=== PATIENT | male | born 1955 | race Caucasian/White ===

== ENCOUNTER 2024-03-24 18:43 | Inpatient (IN) | payer MEDICARE, MEDICAID ==
[~2024-03-24] VITALS: Ht 170.2 cm; Wt 98.6 kg
[~2024-03-24 18:43] MED LIST: ALBU18HF12 IH; DOXA2TAB86 PO; DULO20CA71 PO; NALT50TA33 PO; POTA-206 PO
[2024-03-24 20:47] LABS: BASOPHILS % (AUTO) 0.1 % (0.0-2.0); EOSINOPHILS % (AUTO) 0.3 % (1.0-6.0); HEMATOCRIT 27.7 % (41-53); HEMOGLOBIN 9.1 g/dL (13.5-17.5); LYMPHOCYTES % (AUTO) 8.2 % (22.0-44.0); MEAN CORPUSCULAR HEMOGLOBIN 34.5 pg (26.0-34.0); MEAN CORPUSCULAR HGB CONC 32.9 G/dL (31.0-37.0); MEAN CORPUSCULAR VOLUME 105 fL (80-100); MONOCYTES % (AUTO) 16.2 % (2.0-9.0); NEUTROPHILS # (AUTO) 18.4 K/uL (1.8-7.7); NEUTROPHILS % (AUTO) 75.2 % (40.0-70.0); PLATELET COUNT (AUTO) 271 K/uL (150-450); RED BLOOD CELL COUNT(AUTO) 2.64 MIL/uL (4.50-5.90); RED CELL DISTRIBUTION WIDTH 16.8 % (11.5-14.5); WHITE BLOOD COUNT (AUTO) 24.5 K/uL (4.5-11.0)
[2024-03-24 20:51] LABS: ANION GAP 12 mmol/L (8-16); CALCIUM, TOTAL 9.5 mg/dL (8.8-10.5); CARBON DIOXIDE 32 mmol/L (22-29); CHLORIDE 111 mmol/L (98-107); CREATININE 3.75 mg/dL (0.60-1.30); GLOMERULAR FILTR. RATE CALC 16 mL/min (>60); GLUCOSE,RANDOM 153 mg/dL (70-110); POTASSIUM 3.4 mmol/L (3.5-5.1); SODIUM SERUM 155 mmol/L (136-145)
[2024-03-24 20:59] LABS: AMMONIA 16 umol/L (11-32); UREA NITROGEN, BLOOD 126 mg/dL (7-18)
[2024-03-24 21:00] LABS: INR 1.1 (0.9-1.1); LACTIC ACID 1.6 mmol/L (0.4-2.0); PROTHROMBIN TIME 11.9 SEC (9.4-11.6); TROPONIN I-HIGH SENSITIVITY 100 ng/L (<76)
[2024-03-24 21:06] LABS: ALCOHOL, BLOOD (SERUM) < 3 mg/dL (0-10)
[2024-03-24 21:17] LABS: ALANINE AMINOTRANSFERASE 22 U/L (12-78); ALBUMIN 2.1 g/dL (3.4-5.0); ALKALINE PHOSPHATASE 97 U/L (46-116); ASPARTATE AMINOTRANSFERASE 87 U/L (15-37); CREATINE KINASE, TOTAL ONLY 244 U/L (39-308); TOTAL PROTEIN, SERUM 6.4 g/dL (6.4-8.2)
[2024-03-24 21:29] LABS: RBC MORPHOLOGY COMMENT ABNORMAL RBC MORPH
[2024-03-24] MEDS: PIPERACILLIN/TAZO 3.375 GM/D5W 50 ML IV ONE (23:09)
[2024-03-24] MEDS: SODIUM CHLORIDE 0.9% 1,050 ML IV ONE (23:09)
[2024-03-24] MEDS ORDERED: ACETAMINOPHEN 325 MG TABLET PO PRN (23:15)
[2024-03-24] MEDS: LEVOFLOXACIN 500 MG/D5% WATER 100 ML IV ONE (23:41)
[2024-03-24] MEDS: SODIUM CHLORIDE 0.45% IV ONE (23:41)
[2024-03-24] MEDS: HEPARIN SODIUM,PORCINE 5,000 UNITS/ML VIAL SQ SCH (23:41)
[2024-03-24] MEDS: SODIUM CHLORIDE 0.45% 1,000 ML IV ONE (23:41)
[2024-03-24] MEDS: *CLINICAL-LEVOFLOXACIN IVPB DOSING CLINICAL ONE (23:56)
[2024-03-25] MEDS: VANCOMYCIN 1GM/WATER(PEG/NADA) 200 ML IV ONE (00:44)
[2024-03-25 02:09] LABS: APPEARANCE,URINE HAZY (CLEAR); COLOR,URINE YELLOW (YELLOW); GLUCOSE, URINE (UA) NEGATIVE (NEGATIVE); KETONES,URINE NEGATIVE (NEGATIVE); LEUKOCYTE ESTERASE ,URINE SMALL (NEGATIVE); NITRATE,URINE NEGATIVE (NEGATIVE); OCCULT BLOOD,URINE TRACE (NEGATIVE); PROTEIN,URINE 30-70 mg/dL (NEGATIVE); SPECIFIC GRAVITIY, URINE 1.018 (1.003-1.030)
[2024-03-25 02:17] LABS: ALCOHOL, URINE DRUG SCREEN NEGATIVE (NEGATIVE); AMPHET/METH SCREEN,URINE NEGATIVE (NEGATIVE); BENZODIAZEPINES SCREEN,URINE NEGATIVE (NEGATIVE); CANNABINOID SCREEN,URINE NEGATIVE (NEGATIVE); COCAINE SCREEN,URINE NEGATIVE (NEGATIVE); METHADONE SCREEN, URINE NEGATIVE (NEGATIVE); OPIATE SCREEN,URINE NEGATIVE (NEGATIVE); PHENCYCLIDINE SCREEN,URINE NEGATIVE (NEGATIVE)
[2024-03-25 02:18] LABS: BILIRUBIN,URINE SMALL (NEGATIVE)
[2024-03-25 02:25] LABS: INFLUENZA TYPE A NEGATIVE FOR TYPE A (NEGATIVE); INFLUENZA TYPE B NEGATIVE FOR TYPE B (NEGATIVE)
[2024-03-25 02:29] LABS: BARBITURATE SCREEN, URINE NEGATIVE (NEGATIVE)
[2024-03-25 02:35] LABS: BACTERIA,URINE Moderate /HPF (None Seen); SQUAMOUS EPITHELIAL CELL,UR Few /LPF (None Seen)
[2024-03-25 07:07] LABS: HEMATOCRIT 21.9 % (41-53); HEMOGLOBIN 7.2 g/dL (13.5-17.5); MEAN CORPUSCULAR HEMOGLOBIN 34.3 pg (26.0-34.0); MEAN CORPUSCULAR HGB CONC 32.8 G/dL (31.0-37.0); MEAN CORPUSCULAR VOLUME 105 fL (80-100); PLATELET COUNT (AUTO) 206 K/uL (150-450); RED BLOOD CELL COUNT(AUTO) 2.09 MIL/uL (4.50-5.90); RED CELL DISTRIBUTION WIDTH 16.6 % (11.5-14.5); WHITE BLOOD COUNT (AUTO) 21.7 K/uL (4.5-11.0)
[2024-03-25 07:12] LABS: CALCIUM, TOTAL 7.9 mg/dL (8.8-10.5); CREATININE 3.49 mg/dL (0.60-1.30)
[2024-03-25 07:19] LABS: POTASSIUM 2.8 mmol/L (3.5-5.1)
[2024-03-25 07:52] LABS: TROPONIN I-HIGH SENSITIVITY 86 ng/L (<76)
[2024-03-25 07:58] LABS: BAND NEUTROPHILS % (MANUAL) 13 % (0-5); LYMPHOCYTES % (MANUAL) 20 % (22-44); MONOCYTES % (MANUAL) 1 % (2-9); RBC MORPHOLOGY COMMENT ABNORMAL RBC MORPH; SEGMENTED NEUTROPHILS % 66 % (40-70); TOTAL CELLS COUNTED 100
[2024-03-25] MEDS: POTASSIUM CHL 10 MEQ/WATER 50 ML IV SCH (08:00)
[2024-03-25] MEDS: DOCUSATE SODIUM 100 MG CAPSULE PO SCH (08:00)
[2024-03-25] MEDS: PANTOPRAZOLE SODIUM 40 MG DR TABLET PO SCH (08:17)
[2024-03-25] MEDS ORDERED: TAMS0.4C94 PO (11:21)
[2024-03-25] MEDS ORDERED: ATEN-72 PO (11:21)
[2024-03-25] MEDS: PRENATAL NO.137/IRON/FOLIC ACID TABLET PO SCH (13:00)
[2024-03-25 16:00] VITALS: BP 104/48; PULSE 99; RESP 24; TEMP 96.9; O2SAT 95
[2024-03-25 20:00] VITALS: BP 91/57; PULSE 99; RESP 24; TEMP 97.8; O2SAT 96
[2024-03-25] MEDS: PANTOPRAZOLE SODIUM 80 MG in SODIUM CHLORIDE 0.9% 100 ML IV SCH (21:07)
[2024-03-25 23:37] LABS: HEMATOCRIT 24.1 % (41-53); HEMOGLOBIN 7.9 g/dL (13.5-17.5)
[2024-03-26] VITALS: BP 110/68; PULSE 102; RESP 20; TEMP 98.1; O2SAT 99
[2024-03-26 04:00] VITALS: BP 90/59; PULSE 96; RESP 20; TEMP 97.5; O2SAT 95
[2024-03-26 06:03] LABS: HEMOGLOBIN 8.4 g/dL (13.5-17.5); MEAN CORPUSCULAR HEMOGLOBIN 35.4 pg (26.0-34.0); MEAN CORPUSCULAR HGB CONC 33.4 G/dL (31.0-37.0); MEAN CORPUSCULAR VOLUME 106 fL (80-100); PLATELET COUNT (AUTO) 196 K/uL (150-450); RED BLOOD CELL COUNT(AUTO) 2.36 MIL/uL (4.50-5.90); RED CELL DISTRIBUTION WIDTH 16.8 % (11.5-14.5); WHITE BLOOD COUNT (AUTO) 26.6 K/uL (4.5-11.0)
[2024-03-26 06:11] LABS: GLUCOMETER DEV NAME(LOC) ICUN.5; GLUCOSE,POINT OF CARE 187 MG/DL (70-110)
[2024-03-26 06:28] LABS: BAND NEUTROPHILS % (MANUAL) 8 % (0-5); BASOPHILS % (MANUAL) 1 % (0-2); LYMPHOCYTES % (MANUAL) 5 % (22-44); MONOCYTES % (MANUAL) 9 % (2-9); RBC MORPHOLOGY COMMENT ABNORMAL RBC MORPH; SEGMENTED NEUTROPHILS % 77 % (40-70); TOTAL CELLS COUNTED 100; WBC MORPHOLOGY TOXIC GRANULATION
[2024-03-26 08:00] VITALS: BP 106/63; PULSE 105; RESP 18; TEMP 98.4; O2SAT 90
[2024-03-26 08:16] LABS: CALCIUM, TOTAL 8.3 mg/dL (8.8-10.5); CREATININE 3.21 mg/dL (0.60-1.30)
[2024-03-26] MEDS ORDERED: SODIUM CHLORIDE 0.9% 500 ML IV ONE (09:32)
[2024-03-26] MEDS: DEXTROSE 5%-WATER 1,000 ML IV SCH (09:40)
[2024-03-26] MEDS ORDERED: SODIUM CHLORIDE 0.9% 250 ML IV ONE ×2 (09:45→19:44)
[2024-03-26] MEDS: POTASSIUM CHL 10 MEQ/WATER 50 ML IV SCH ×2 (09:53→19:51)
[2024-03-26 11:10] LABS: HEMATOCRIT 24.8 % (41-53); HEMOGLOBIN 8.2 g/dL (13.5-17.5)
[2024-03-26 12:00] VITALS: BP 97/53; PULSE 102; PULSE 113; RESP 22; TEMP 98.2; O2SAT 98
[2024-03-26] MEDS: DEXTROSE 5%-0.45% SODIUM CHL 1,000 ML IV SCH (12:33)
[2024-03-26] MEDS: LEVOFLOXACIN 500 MG/D5% WATER 100 ML IV SCH (13:24)
[2024-03-26 14:34] LABS: CALCIUM, TOTAL 8.1 mg/dL (8.8-10.5); CREATININE 3.21 mg/dL (0.60-1.30); PHOSPHORUS 2.1 mg/dL (2.5-4.9)
[2024-03-26 14:37] LABS: POTASSIUM 2.9 mmol/L (3.5-5.1)
[2024-03-26 14:40] LABS: MAGNESIUM 0.9 mg/dL (1.80-2.40)
[2024-03-26] MEDS: MAGNESIUM SULFATE 3 GM in DEXTROSE 5%-WATER 100 ML IV ONE (15:41)
[2024-03-26 16:00] VITALS: BP 92/56; PULSE 109; RESP 20; TEMP 97.8; O2SAT 100
[2024-03-26 17:08] LABS: HEMATOCRIT 23.4 % (41-53); HEMOGLOBIN 7.4 g/dL (13.5-17.5)
[2024-03-26 17:33] LABS: APPEARANCE,URINE CLEAR (CLEAR); BILIRUBIN,URINE NEGATIVE (NEGATIVE); COLOR,URINE YELLOW (YELLOW); GLUCOSE, URINE (UA) NEGATIVE (NEGATIVE); KETONES,URINE NEGATIVE (NEGATIVE); LEUKOCYTE ESTERASE ,URINE SMALL (NEGATIVE); NITRATE,URINE NEGATIVE (NEGATIVE); OCCULT BLOOD,URINE SMALL (NEGATIVE); PH,URINE 5.5 (5.0-8.0); PROTEIN,URINE TRACE mg/dL (NEGATIVE); SPECIFIC GRAVITIY, URINE 1.017 (1.003-1.030); UROBILINOGEN,URINE <=1.0 mg/dL (<=1.0)
[2024-03-26 17:36] LABS: CREATININE,URINE RANDOM 87.2 mg/dL (30.0-125.0); UREA NITROGEN,URINE RANDOM 927 mg/dL (350-1000)
[2024-03-26 17:37] LABS: SODIUM,URINE RANDOM 5 mmol/l (20-110)
[2024-03-26 17:43] LABS: BACTERIA,URINE Few /HPF (None Seen); SQUAMOUS EPITHELIAL CELL,UR Few /LPF (None Seen)
[2024-03-26 20:00] VITALS: BP 92/56; PULSE 91; PULSE 96; RESP 25; TEMP 97.6; O2SAT 99
[2024-03-26] MEDS: POTASSIUM PHOS,M-BASIC-D-BASIC 10 MMOL in DEXTROSE 5%-WATER 100 ML IV ONE (21:09)
[2024-03-26] MEDS ORDERED: LEVOFLOXACIN 250 MG/D5% WATER 50 ML IV SCH (23:00)
[2024-03-26 23:33] LABS: HEMATOCRIT 22.9 % (41-53); HEMOGLOBIN 7.5 g/dL (13.5-17.5)
[2024-03-26 23:46] LABS: CALCIUM, TOTAL 8.1 mg/dL (8.8-10.5); CREATININE 3.08 mg/dL (0.60-1.30); MAGNESIUM 2.1 mg/dL (1.80-2.40); PHOSPHORUS 2.7 mg/dL (2.5-4.9); POTASSIUM 3.2 mmol/L (3.5-5.1)
[2024-03-27] VITALS (12 sets, daily range): BP systolic 87–133; BP diastolic 44–84; PULSE 86–102; RESP 16–24; TEMP 97–98.1; O2SAT 88–100
[2024-03-27] MEDS: POTASSIUM CHL 10 MEQ/WATER 50 ML IV SCH (00:37)
[2024-03-27] MEDS: PIPERACILLIN SODIUM/TAZOBACTAM 2.25 GM in DEXTROSE 5%-WATER 50 ML IV SCH (02:29)
[2024-03-27 06:43] LABS: HEMATOCRIT 22.5 % (41-53); HEMOGLOBIN 7.4 g/dL (13.5-17.5); MEAN CORPUSCULAR HEMOGLOBIN 34.8 pg (26.0-34.0); MEAN CORPUSCULAR HGB CONC 32.9 G/dL (31.0-37.0); MEAN CORPUSCULAR VOLUME 106 fL (80-100); PLATELET COUNT (AUTO) 162 K/uL (150-450); RED BLOOD CELL COUNT(AUTO) 2.13 MIL/uL (4.50-5.90); RED CELL DISTRIBUTION WIDTH 17.1 % (11.5-14.5)
[2024-03-27 07:06] LABS: CALCIUM, TOTAL 7.8 mg/dL (8.8-10.5); CREATININE 2.93 mg/dL (0.60-1.30); MAGNESIUM 1.8 mg/dL (1.80-2.40); PHOSPHORUS 2.4 mg/dL (2.5-4.9); POTASSIUM 3.4 mmol/L (3.5-5.1)
[2024-03-27 07:31] LABS: THYROID STIMULATING HORMONE 0.99 uIU/mL (0.36-3.74)
[2024-03-27] MEDS: VANCOMYCIN 500 MG/WATER(PEG) 100 ML IV SCH (08:11)
[2024-03-27 09:14] LABS: BAND NEUTROPHILS % (MANUAL) 6 % (0-5); LYMPHOCYTES % (MANUAL) 6 % (22-44); MONOCYTES % (MANUAL) 6 % (2-9); RBC MORPHOLOGY COMMENT ABNORMAL R; SEGMENTED NEUTROPHILS % 82 % (40-70); TOTAL CELLS COUNTED 100
[2024-03-27] MEDS: ALBUMIN HUMAN 5%-12.5GM/250ML 250 ML IV ONE (09:46)
[2024-03-27] MEDS ORDERED: SODIUM CHLORIDE 0.9% 250 ML IV ONE ×2 (18:11→20:22)
[2024-03-27 23:23] LABS: HEMOGLOBIN 8.8 g/dL (13.5-17.5)
[2024-03-28] VITALS (11 sets, daily range): BP systolic 80–122; BP diastolic 40–76; PULSE 89–111; RESP 16–21; TEMP 97.4–98.1; O2SAT 97–100
[2024-03-28 05:56] LABS: BASOPHILS % (AUTO) 0.1 % (0.0-2.0); EOSINOPHILS % (AUTO) 0.9 % (1.0-6.0); HEMATOCRIT 25.4 % (41-53); HEMOGLOBIN 8.5 g/dL (13.5-17.5); LYMPHOCYTES # (AUTO) 1.6 K/uL (1.0-4.8); LYMPHOCYTES % (AUTO) 5.3 % (22.0-44.0); MEAN CORPUSCULAR HEMOGLOBIN 33.4 pg (26.0-34.0); MEAN CORPUSCULAR HGB CONC 33.3 G/dL (31.0-37.0); MEAN CORPUSCULAR VOLUME 100 fL (80-100); MONOCYTES % (AUTO) 6.9 % (2.0-9.0); NEUTROPHILS # (AUTO) 25.5 K/uL (1.8-7.7); PLATELET COUNT (AUTO) 137 K/uL (150-450); RED BLOOD CELL COUNT(AUTO) 2.53 MIL/uL (4.50-5.90); RED CELL DISTRIBUTION WIDTH 20.3 % (11.5-14.5); WHITE BLOOD COUNT (AUTO) 29.3 K/uL (4.5-11.0)
[2024-03-28 06:03] LABS: NEUTROPHILS % (AUTO) 86.8 % (40.0-70.0)
[2024-03-28 06:21] LABS: RBC MORPHOLOGY COMMENT ABNORMAL RBC MORPH
[2024-03-28 09:01] LABS: ALBUMIN 1.8 g/dL (3.4-5.0); BILIRUBIN,TOTAL 0.9 mg/dL (0.1-1.0); CALCIUM, TOTAL 7.7 mg/dL (8.8-10.5); CREATININE 2.45 mg/dL (0.60-1.30); TOTAL PROTEIN, SERUM 5.4 g/dL (6.4-8.2)
[2024-03-28 09:05] LABS: POTASSIUM 2.8 mmol/L (3.5-5.1)
[2024-03-28] MEDS: POTASSIUM CHL 10 MEQ/WATER 50 ML IV SCH (09:20)
[2024-03-28] MEDS: LEVOFLOXACIN 750 MG/D5% WATER 150 ML IV SCH (11:34)
[2024-03-28] MEDS ORDERED: NOREPINEPHRINE 8 MG/0.9 % NACL 250 ML IV PRN (12:45)
[2024-03-28] MEDS ORDERED: SODIUM CHLORIDE 0.9% 500 ML IV ONE (13:09)
[2024-03-28] MEDS: 1: MAGNESIUM SULFATE 2 GM, MVI, ADULT NO.1 WITH VIT K 10 ML, THIAMINE 100 MG, FOLIC ACID IV SCH (14:48)
[2024-03-28] MEDS: PIPERACILLIN/TAZO 3.375 GM/D5W 50 ML IV SCH (14:49)
[2024-03-28] MEDS: DEXTROSE 5%-0.45% SODIUM CHL 1,000 ML IV SCH (15:42)
[2024-03-28] MEDS ORDERED: SODIUM CHLORIDE 0.9% 1,000 ML ONE (16:21)
[2024-03-28 16:23] LABS: HEMATOCRIT 28.1 % (41-53); HEMOGLOBIN 9.4 g/dL (13.5-17.5)
[2024-03-28] MEDS: PHENYLEPHRINE 200 MG/D5%-WATER 250 ML IV PRN (16:24)
[2024-03-29] VITALS: BP 140/76; PULSE 95; RESP 16; TEMP 98.1; O2SAT 100
[2024-03-29 04:00] VITALS: BP 126/77; PULSE 95; RESP 13; TEMP 98.4; O2SAT 97
[2024-03-29 06:14] LABS: HEMATOCRIT 29.9 % (41-53); MEAN CORPUSCULAR HEMOGLOBIN 32.7 pg (26.0-34.0); MEAN CORPUSCULAR HGB CONC 33.5 G/dL (31.0-37.0); MEAN CORPUSCULAR VOLUME 98 fL (80-100); PLATELET COUNT (AUTO) 152 K/uL (150-450); RED BLOOD CELL COUNT(AUTO) 3.07 MIL/uL (4.50-5.90); RED CELL DISTRIBUTION WIDTH 20.2 % (11.5-14.5)
[2024-03-29 06:26] LABS: CALCIUM, TOTAL 7.4 mg/dL (8.8-10.5); CREATININE 2.21 mg/dL (0.60-1.30)
[2024-03-29 06:29] LABS: WHITE BLOOD COUNT (AUTO) 32.2 K/uL (4.5-11.0)
[2024-03-29 06:32] LABS: PHOSPHORUS 2.2 mg/dL (2.5-4.9); VANCOMYCIN,RANDOM 16.2 mcg/mL (25.0-50.0)
[2024-03-29 06:37] LABS: POTASSIUM 2.7 mmol/L (3.5-5.1)
[2024-03-29 06:51] LABS: BAND NEUTROPHILS % (MANUAL) 0 % (0-5)
[2024-03-29 06:55] LABS: LYMPHOCYTES % (MANUAL) 6 % (22-44); MONOCYTES % (MANUAL) 3 % (2-9); SEGMENTED NEUTROPHILS % 91 % (40-70); TOTAL CELLS COUNTED 100
[2024-03-29] MEDS ORDERED: PROPOFOL 1% 20 ML VIAL IVP ONE (06:58)
[2024-03-29] MEDS ORDERED: LIDOCAINE/PF 2% 5 ML VIAL ONE (06:58)
[2024-03-29 08:00] VITALS: BP 151/46; PULSE 90; RESP 13; TEMP 97.9; O2SAT 99
[2024-03-29] MEDS: POTASSIUM CHL 10 MEQ/WATER 50 ML IV SCH ×3 (08:35→23:46)
[2024-03-29] MEDS: VANCOMYCIN 500 MG/WATER(PEG) 100 ML IV SCH (08:36)
[2024-03-29] MEDS ORDERED: SODIUM CHLORIDE 0.9% 250 ML IV ONE (08:39)
[2024-03-29] MEDS: SODIUM PHOS,M-BASIC-D-BASIC 30 MMOL in DEXTROSE 5%-WATER 250 ML IV ONE (11:22)
[2024-03-29] MEDS: MAGNESIUM SULFATE 4 GM/WATER 100 ML IV ONE (11:22)
[2024-03-29 12:00] VITALS: BP 98/66; PULSE 88; RESP 13; TEMP 97.7; O2SAT 100
[2024-03-29 16:00] VITALS: BP 99/70; PULSE 95; RESP 14; TEMP 97.4; O2SAT 97
[2024-03-29 17:23] LABS: CALCIUM, TOTAL 7.2 mg/dL (8.8-10.5); CREATININE 1.94 mg/dL (0.60-1.30); PHOSPHORUS 4.9 mg/dL (2.5-4.9)
[2024-03-29 17:38] LABS: POTASSIUM 2.4 mmol/L (3.5-5.1)
[2024-03-29 20:00] VITALS: BP 101/60; PULSE 84; RESP 13; TEMP 97.9; O2SAT 100
[2024-03-30] VITALS: BP 115/75; PULSE 83; RESP 22; TEMP 98.4; O2SAT 99
[2024-03-30 04:00] VITALS: BP 98/61; PULSE 92; RESP 16; TEMP 98.6; O2SAT 99
[2024-03-30 05:59] LABS: BASOPHILS % (AUTO) 0.4 % (0.0-2.0); EOSINOPHILS % (AUTO) 0.8 % (1.0-6.0); HEMATOCRIT 30.2 % (41-53); HEMOGLOBIN 10.2 g/dL (13.5-17.5); LYMPHOCYTES # (AUTO) 1.5 K/uL (1.0-4.8); LYMPHOCYTES % (AUTO) 5.8 % (22.0-44.0); MEAN CORPUSCULAR HEMOGLOBIN 33.1 pg (26.0-34.0); MEAN CORPUSCULAR HGB CONC 33.7 G/dL (31.0-37.0); MEAN CORPUSCULAR VOLUME 98 fL (80-100); MONOCYTES # (AUTO) 1.7 K/uL (0.1-1.0); MONOCYTES % (AUTO) 6.8 % (2.0-9.0); NEUTROPHILS # (AUTO) 21.9 K/uL (1.8-7.7); PLATELET COUNT (AUTO) 135 K/uL (150-450); RED BLOOD CELL COUNT(AUTO) 3.08 MIL/uL (4.50-5.90); RED CELL DISTRIBUTION WIDTH 19.4 % (11.5-14.5); WHITE BLOOD COUNT (AUTO) 25.4 K/uL (4.5-11.0)
[2024-03-30 06:05] LABS: NEUTROPHILS % (AUTO) 86.2 % (40.0-70.0)
[2024-03-30 06:12] LABS: CALCIUM, TOTAL 7.8 mg/dL (8.8-10.5); CREATININE 1.94 mg/dL (0.60-1.30)
[2024-03-30 06:20] LABS: POTASSIUM 2.6 mmol/L (3.5-5.1)
[2024-03-30] MEDS ORDERED: SODIUM CHLORIDE 0.9% 250 ML IV ONE (07:40)
[2024-03-30] MEDS: POTASSIUM CHL 10 MEQ/WATER 50 ML IV SCH ×2 (07:43→20:04)
[2024-03-30 08:00] VITALS: BP 103/62; PULSE 94; RESP 17; TEMP 98.1; O2SAT 96
[2024-03-30 12:00] VITALS: BP 118/80; PULSE 100; RESP 18; TEMP 98.2; O2SAT 99
[2024-03-30 16:00] VITALS: BP 101/72; PULSE 98; RESP 16; TEMP 97.6; O2SAT 95
[2024-03-30 20:00] VITALS: BP 90/59; PULSE 100; PULSE 98; RESP 17; TEMP 98.9; O2SAT 97
[2024-03-30 21:21] LABS: C.DIFF GDH ANTIGEN, Stool Positive (Negative); C.DIFF TOXINS A&B, Stool Negative (Negative)
[2024-03-31] VITALS: BP 111/68; PULSE 106; RESP 18; TEMP 98.9; O2SAT 95
[2024-03-31 04:00] VITALS: BP 102/68; PULSE 94; RESP 13; TEMP 98.7; O2SAT 97
[2024-03-31 06:35] LABS: ALBUMIN 1.2 g/dL (3.4-5.0); BILIRUBIN,TOTAL 0.7 mg/dL (0.1-1.0); CALCIUM, TOTAL 8.3 mg/dL (8.8-10.5); CREATININE 1.81 mg/dL (0.60-1.30); MAGNESIUM 1.4 mg/dL (1.80-2.40); PHOSPHORUS 2.9 mg/dL (2.5-4.9); TOTAL PROTEIN, SERUM 5.1 g/dL (6.4-8.2)
[2024-03-31 06:36] LABS: BASOPHILS % (AUTO) 0.5 % (0.0-2.0); EOSINOPHILS % (AUTO) 0.7 % (1.0-6.0); HEMATOCRIT 28.5 % (41-53); HEMOGLOBIN 9.4 g/dL (13.5-17.5); LYMPHOCYTES # (AUTO) 1.4 K/uL (1.0-4.8); LYMPHOCYTES % (AUTO) 5.6 % (22.0-44.0); MEAN CORPUSCULAR HEMOGLOBIN 32.6 pg (26.0-34.0); MEAN CORPUSCULAR VOLUME 99 fL (80-100); MONOCYTES # (AUTO) 1.8 K/uL (0.1-1.0); MONOCYTES % (AUTO) 7.1 % (2.0-9.0); NEUTROPHILS # (AUTO) 21.5 K/uL (1.8-7.7); PLATELET COUNT (AUTO) 132 K/uL (150-450); RED BLOOD CELL COUNT(AUTO) 2.88 MIL/uL (4.50-5.90)
[2024-03-31 06:46] LABS: NEUTROPHILS % (AUTO) 86.1 % (40.0-70.0)
[2024-03-31 08:00] VITALS: BP 92/65; PULSE 91; RESP 13; TEMP 98.4; O2SAT 96
[2024-03-31] MEDS ORDERED: POTASSIUM CHLORIDE 20 MEQ ER TABLET PO ONE (11:00)
[2024-03-31 12:00] VITALS: BP 108/66; PULSE 98; RESP 17; TEMP 97.9; O2SAT 97
[2024-03-31] MEDS: POTASSIUM CHL 10 MEQ/WATER 50 ML IV SCH (13:00)
[2024-03-31] MEDS ORDERED: SODIUM CHLORIDE 0.9% 250 ML IV ONE (14:01)
[2024-03-31] MEDS: VANCOMYCIN HCL 125 MG/2.5 ML SOLUTION ORAL.SYG PO SCH (14:04)
[2024-03-31] MEDS: MetroNIDAZOLE 500 MG TABLET PO SCH (15:26)
[2024-03-31 16:00] VITALS: BP 124/83; PULSE 103; RESP 21; TEMP 98.2; O2SAT 98
[2024-03-31 20:00] VITALS: BP 106/72; PULSE 123; RESP 31; TEMP 98; O2SAT 98
[2024-04-01] VITALS (7 sets, daily range): BP systolic 92–115; BP diastolic 54–73; PULSE 104–119; RESP 15–21; TEMP 97.4–98; O2SAT 96–99
[2024-04-01 05:59] LABS: CALCIUM, TOTAL 8.6 mg/dL (8.8-10.5); CREATININE 1.8 mg/dL (0.60-1.30); POTASSIUM 3.8 mmol/L (3.5-5.1); VANCOMYCIN,RANDOM 19.4 mcg/mL (25.0-50.0)
[2024-04-01 06:18] LABS: BASOPHILS % (AUTO) 0.5 % (0.0-2.0); EOSINOPHILS % (AUTO) 1.1 % (1.0-6.0); HEMATOCRIT 27.9 % (41-53); HEMOGLOBIN 9.2 g/dL (13.5-17.5); LYMPHOCYTES # (AUTO) 1.3 K/uL (1.0-4.8); LYMPHOCYTES % (AUTO) 6.7 % (22.0-44.0); MEAN CORPUSCULAR HEMOGLOBIN 32.6 pg (26.0-34.0); MEAN CORPUSCULAR HGB CONC 32.8 G/dL (31.0-37.0); MEAN CORPUSCULAR VOLUME 99 fL (80-100); MONOCYTES # (AUTO) 1.6 K/uL (0.1-1.0); MONOCYTES % (AUTO) 8.6 % (2.0-9.0); NEUTROPHILS # (AUTO) 15.8 K/uL (1.8-7.7); NEUTROPHILS % (AUTO) 83.1 % (40.0-70.0); PLATELET COUNT (AUTO) 132 K/uL (150-450); RED BLOOD CELL COUNT(AUTO) 2.81 MIL/uL (4.50-5.90); RED CELL DISTRIBUTION WIDTH 19.6 % (11.5-14.5); WHITE BLOOD COUNT (AUTO) 19.1 K/uL (4.5-11.0)
[2024-04-01] MEDS: MAGNESIUM SULFATE 4 GM/WATER 100 ML IV ONE (10:52)
[2024-04-01] MEDS ORDERED: SODIUM CHLORIDE 0.9% 250 ML IV ONE (12:16)
[2024-04-01] MEDS: CITRIC ACID/SODIUM CITRATE 30 ML SOLUTION UDCUP PO SCH (21:38)
[2024-04-01] MEDS: PANTOPRAZOLE SODIUM 40 MG/VIAL IVP SCH (21:39)
[2024-04-02] VITALS (9 sets, daily range): BP systolic 96–121; BP diastolic 55–71; PULSE 60–113; RESP 18–20; TEMP 97.2–98.1; O2SAT 95–100
[2024-04-02 06:25] LABS: CREATININE 1.57 mg/dL (0.60-1.30); MAGNESIUM 1.7 mg/dL (1.80-2.40); POTASSIUM 3.2 mmol/L (3.5-5.1)
[2024-04-02 06:37] LABS: BASOPHILS % (AUTO) 0.7 % (0.0-2.0); EOSINOPHILS % (AUTO) 1.3 % (1.0-6.0); HEMATOCRIT 27.3 % (41-53); HEMOGLOBIN 8.7 g/dL (13.5-17.5); LYMPHOCYTES # (AUTO) 1.5 K/uL (1.0-4.8); LYMPHOCYTES % (AUTO) 8.1 % (22.0-44.0); MEAN CORPUSCULAR VOLUME 100 fL (80-100); MONOCYTES # (AUTO) 1.8 K/uL (0.1-1.0); MONOCYTES % (AUTO) 9.8 % (2.0-9.0); NEUTROPHILS % (AUTO) 80.1 % (40.0-70.0); PLATELET COUNT (AUTO) 137 K/uL (150-450); RED BLOOD CELL COUNT(AUTO) 2.73 MIL/uL (4.50-5.90); WHITE BLOOD COUNT (AUTO) 18.8 K/uL (4.5-11.0)
[2024-04-02 07:32] LABS: RBC MORPHOLOGY COMMENT ABNORMAL RBC MORPH
[2024-04-02] MEDS: POTASSIUM CHLORIDE 20 MEQ ER TABLET PO ONE (12:06)
[2024-04-03 05:41] VITALS: BP 113/56; PULSE 106; RESP 18; TEMP 97.7; O2SAT 97
[2024-04-03 07:28] VITALS: BP 102/58; PULSE 106; RESP 19; TEMP 98.4; O2SAT 94
[2024-04-03 10:30] LABS: BASOPHILS % (AUTO) 0.6 % (0.0-2.0); EOSINOPHILS % (AUTO) 1.4 % (1.0-6.0); HEMATOCRIT 27.2 % (41-53); HEMOGLOBIN 8.9 g/dL (13.5-17.5); LYMPHOCYTES # (AUTO) 1.7 K/uL (1.0-4.8); MEAN CORPUSCULAR HEMOGLOBIN 32.1 pg (26.0-34.0); MEAN CORPUSCULAR HGB CONC 32.7 G/dL (31.0-37.0); MEAN CORPUSCULAR VOLUME 98 fL (80-100); MONOCYTES # (AUTO) 1.9 K/uL (0.1-1.0); MONOCYTES % (AUTO) 11.5 % (2.0-9.0); NEUTROPHILS # (AUTO) 12.7 K/uL (1.8-7.7); NEUTROPHILS % (AUTO) 76.5 % (40.0-70.0); PLATELET COUNT (AUTO) 147 K/uL (150-450); RED BLOOD CELL COUNT(AUTO) 2.77 MIL/uL (4.50-5.90); RED CELL DISTRIBUTION WIDTH 19.1 % (11.5-14.5); WHITE BLOOD COUNT (AUTO) 16.6 K/uL (4.5-11.0)
[2024-04-03 10:34] LABS: CREATININE 1.48 mg/dL (0.60-1.30); POTASSIUM 3.3 mmol/L (3.5-5.1)
[2024-04-03 12:49] VITALS: BP 101/70; PULSE 101; RESP 20; TEMP 97.8; O2SAT 92
[2024-04-03] MEDS: POTASSIUM CHLORIDE 20 MEQ ER TABLET PO ONE (15:20)
[2024-04-03 15:33] VITALS: BP 110/70; PULSE 101; RESP 18; TEMP 97.5; O2SAT 94
[2024-04-03 16:00] VITALS: RESP 18; O2SAT 94
[2024-04-03 16:02] LABS: MAGNESIUM 1.2 mg/dL (1.80-2.40)
[2024-04-03] MEDS: MAGNESIUM OXIDE 400 MG TABLET PO ONE (19:08)
[2024-04-03 20:03] VITALS: BP 122/78; PULSE 110; RESP 18; TEMP 97.2; O2SAT 97
[2024-04-04 00:05] VITALS: BP 106/56; PULSE 110; RESP 18; TEMP 97.9; O2SAT 94
[2024-04-04 06:00] VITALS: BP 105/75; PULSE 110; RESP 18; TEMP 98.3; O2SAT 95
[2024-04-04 06:39] LABS: BASOPHILS % (AUTO) 0.4 % (0.0-2.0); EOSINOPHILS % (AUTO) 0.3 % (1.0-6.0); HEMATOCRIT 27.5 % (41-53); LYMPHOCYTES # (AUTO) 1.4 K/uL (1.0-4.8); MEAN CORPUSCULAR HEMOGLOBIN 32.2 pg (26.0-34.0); MEAN CORPUSCULAR HGB CONC 32.7 G/dL (31.0-37.0); MEAN CORPUSCULAR VOLUME 99 fL (80-100); MONOCYTES # (AUTO) 2.2 K/uL (0.1-1.0); MONOCYTES % (AUTO) 9.4 % (2.0-9.0); NEUTROPHILS # (AUTO) 19.4 K/uL (1.8-7.7); NEUTROPHILS % (AUTO) 83.9 % (40.0-70.0); PLATELET COUNT (AUTO) 166 K/uL (150-450); RED BLOOD CELL COUNT(AUTO) 2.79 MIL/uL (4.50-5.90); RED CELL DISTRIBUTION WIDTH 19.4 % (11.5-14.5); WHITE BLOOD COUNT (AUTO) 23.2 K/uL (4.5-11.0)
[2024-04-04 07:37] LABS: CREATININE 1.54 mg/dL (0.60-1.30); POTASSIUM 3.3 mmol/L (3.5-5.1); VANCOMYCIN,RANDOM 20.4 mcg/mL (25.0-50.0)
[2024-04-04 12:28] VITALS: BP 101/63; PULSE 113; RESP 18; TEMP 97.6; O2SAT 96
[2024-04-04] MEDS: POTASSIUM CHLORIDE 20 MEQ ER TABLET PO ONE (12:33)
[2024-04-04] MEDS: FUROSEMIDE 40 MG/4 ML VIAL IVP SCH (12:34)
[2024-04-04 16:26] VITALS: BP 111/66; PULSE 111; RESP 18; TEMP 97.6; O2SAT 96
[2024-04-04 22:36] VITALS: BP_SYST 112; BP_SYST 143; BP_DIAS 45; BP_DIAS 81; PULSE 111; PULSE 71; RESP 19; O2SAT 96; O2SAT 97
[2024-04-05] VITALS: BP 96/56; PULSE 92; RESP 18; O2SAT 99
[2024-04-05 04:00] VITALS: BP 91/62; PULSE 110; RESP 19; O2SAT 95
[2024-04-05 07:42] LABS: BASOPHILS % (AUTO) 0.5 % (0.0-2.0); HEMATOCRIT 25.4 % (41-53); HEMOGLOBIN 8.3 g/dL (13.5-17.5); LYMPHOCYTES # (AUTO) 1.6 K/uL (1.0-4.8); LYMPHOCYTES % (AUTO) 8.2 % (22.0-44.0); MEAN CORPUSCULAR HEMOGLOBIN 32.5 pg (26.0-34.0); MEAN CORPUSCULAR HGB CONC 32.6 G/dL (31.0-37.0); MEAN CORPUSCULAR VOLUME 100 fL (80-100); MONOCYTES # (AUTO) 1.5 K/uL (0.1-1.0); MONOCYTES % (AUTO) 7.7 % (2.0-9.0); NEUTROPHILS # (AUTO) 16.2 K/uL (1.8-7.7); NEUTROPHILS % (AUTO) 82.6 % (40.0-70.0); PLATELET COUNT (AUTO) 176 K/uL (150-450); RED BLOOD CELL COUNT(AUTO) 2.55 MIL/uL (4.50-5.90); RED CELL DISTRIBUTION WIDTH 19.6 % (11.5-14.5); WHITE BLOOD COUNT (AUTO) 19.6 K/uL (4.5-11.0)
[2024-04-05 07:55] LABS: CALCIUM, TOTAL 8.8 mg/dL (8.8-10.5); CREATININE 1.41 mg/dL (0.60-1.30); POTASSIUM 3.1 mmol/L (3.5-5.1)
[2024-04-05 08:59] VITALS: BP 90/63; PULSE 112; RESP 18; TEMP 97.8; O2SAT 95
[2024-04-05] MEDS ORDERED: SODIUM CHLORIDE 0.9% 250 ML IV ONE (09:41)
[2024-04-05] MEDS ORDERED: RINGERS SOLUTION,LACTATED 1,000 ML IV ONE (09:45)
[2024-04-05] MEDS: RINGERS SOLUTION,LACTATED 250 ML IV ONE ×2 (09:45→11:46)
[2024-04-05 11:30] VITALS: BP 101/60; PULSE 112; RESP 19; TEMP 98; O2SAT 99
[2024-04-05] MEDS ORDERED: SODIUM CHLORIDE 0.9% 100 ML ONE (11:45)
[2024-04-05] MEDS ORDERED: IOHEXOL 350 MG/ML 100 ML VIAL ONE (11:45)
[2024-04-05] MEDS ORDERED: 0.9% SODIUM CHLORIDE 10 ML SYRINGE IVP ONE (11:45)
[2024-04-05] MEDS: MIDODRINE HCL 2.5 MG TABLET PO SCH (13:25)
[2024-04-05] MEDS: POTASSIUM CHL 10 MEQ/WATER 50 ML IV SCH (15:20)
[2024-04-05 20:00] VITALS: PULSE 107
[2024-04-05 20:07] VITALS: BP 92/46; PULSE 118; RESP 19; TEMP 98.1; O2SAT 95
[2024-04-06] VITALS (9 sets, daily range): BP systolic 90–121; BP diastolic 52–78; PULSE 107–125; RESP 18–20; TEMP 97.6–98; O2SAT 93–96
[2024-04-06 07:45] LABS: BASOPHILS % (AUTO) 0.7 % (0.0-2.0); EOSINOPHILS % (AUTO) 1.6 % (1.0-6.0); HEMATOCRIT 24.5 % (41-53); HEMOGLOBIN 7.9 g/dL (13.5-17.5); LYMPHOCYTES # (AUTO) 1.8 K/uL (1.0-4.8); LYMPHOCYTES % (AUTO) 9.6 % (22.0-44.0); MEAN CORPUSCULAR HEMOGLOBIN 32.3 pg (26.0-34.0); MEAN CORPUSCULAR HGB CONC 32.4 G/dL (31.0-37.0); MEAN CORPUSCULAR VOLUME 99 fL (80-100); MONOCYTES # (AUTO) 1.4 K/uL (0.1-1.0); MONOCYTES % (AUTO) 7.3 % (2.0-9.0); NEUTROPHILS # (AUTO) 15.4 K/uL (1.8-7.7); NEUTROPHILS % (AUTO) 80.8 % (40.0-70.0); PLATELET COUNT (AUTO) 200 K/uL (150-450); RED BLOOD CELL COUNT(AUTO) 2.46 MIL/uL (4.50-5.90); RED CELL DISTRIBUTION WIDTH 19.6 % (11.5-14.5); WHITE BLOOD COUNT (AUTO) 19.1 K/uL (4.5-11.0)
[2024-04-06 08:44] LABS: ALBUMIN 1.2 g/dL (3.4-5.0); BILIRUBIN,TOTAL 0.6 mg/dL (0.1-1.0); CALCIUM, TOTAL 8.8 mg/dL (8.8-10.5); CREATININE 1.5 mg/dL (0.60-1.30); PHOSPHORUS 4.5 mg/dL (2.5-4.9); POTASSIUM 4.2 mmol/L (3.5-5.1); TOTAL PROTEIN, SERUM 5.4 g/dL (6.4-8.2)
[2024-04-06] MEDS: METOPROLOL TARTRATE 25 MG TABLET PO SCH (09:20)
[2024-04-06] MEDS: FUROSEMIDE 40 MG/4 ML VIAL IVP ONE (11:55)
[2024-04-06] MEDS: MAGNESIUM SULFATE 2 GM/WATER 50 ML IV ONE (12:07)
[2024-04-06] MEDS ORDERED: MEBROFENIN TC99M/MCL ISOTOPE 1 EA INJ INJ ONE (14:30)
[2024-04-06] MEDS: PSYLLIUM SEED ORANGE SF 5.8 GM/PACKET GT ONE (18:01)
[2024-04-06] MEDS: KETOROLAC TROMETHAMINE 30 MG/ML VIAL IVP ONE (18:02)
[2024-04-06] MEDS: CITRIC ACID/SODIUM CITRATE 30 ML SOLUTION UDCUP PO SCH (18:03)
[2024-04-06] MEDS: LIDOCAINE 5% TRANSDERMAL PATCH TD ONE (18:03)
[2024-04-06] MEDS: PPN SOLUTION 1 EA in AA 4.25%/CALCIUM/LYTES/D5W 1,000 ML IV SCH (22:09)
[2024-04-07 00:10] VITALS: BP 95/52; PULSE 99; RESP 18; TEMP 97.8; O2SAT 94
[2024-04-07 04:07] VITALS: BP 118/56; PULSE 103; RESP 16; TEMP 97.3; O2SAT 93
[2024-04-07] MEDS ORDERED: SODIUM CHLORIDE 0.9% 500 ML IV SCH (04:30)
[2024-04-07] MEDS: SODIUM CHLORIDE 0.9% 1,000 ML IV SCH (05:16)
[2024-04-07 07:09] LABS: BASOPHILS % (AUTO) 0.9 % (0.0-2.0); CALCIUM, TOTAL 8.9 mg/dL (8.8-10.5); CREATININE 1.66 mg/dL (0.60-1.30); EOSINOPHILS % (AUTO) 3.1 % (1.0-6.0); HEMATOCRIT 22.3 % (41-53); HEMOGLOBIN 7.1 g/dL (13.5-17.5); LYMPHOCYTES # (AUTO) 2.1 K/uL (1.0-4.8); LYMPHOCYTES % (AUTO) 14.1 % (22.0-44.0); MAGNESIUM 1.5 mg/dL (1.80-2.40); MEAN CORPUSCULAR HEMOGLOBIN 31.9 pg (26.0-34.0); MEAN CORPUSCULAR HGB CONC 31.9 G/dL (31.0-37.0); MEAN CORPUSCULAR VOLUME 100 fL (80-100); MONOCYTES # (AUTO) 0.9 K/uL (0.1-1.0); MONOCYTES % (AUTO) 6.2 % (2.0-9.0); NEUTROPHILS # (AUTO) 11.1 K/uL (1.8-7.7); NEUTROPHILS % (AUTO) 75.7 % (40.0-70.0); PLATELET COUNT (AUTO) 199 K/uL (150-450); POTASSIUM 4.1 mmol/L (3.5-5.1); RED BLOOD CELL COUNT(AUTO) 2.24 MIL/uL (4.50-5.90); RED CELL DISTRIBUTION WIDTH 19.2 % (11.5-14.5); WHITE BLOOD COUNT (AUTO) 14.7 K/uL (4.5-11.0)
[2024-04-07 08:30] VITALS: BP 104/60; PULSE 103; RESP 18; TEMP 97.8; O2SAT 92
[2024-04-07 09:13] LABS: PHOSPHORUS 5.6 mg/dL (2.5-4.9)
[2024-04-07 11:19] VITALS: BP 96/58; PULSE 103; RESP 19; TEMP 97.9; O2SAT 95
[2024-04-07] MEDS: MAGNESIUM SULFATE 2 GM/WATER 50 ML IV ONE (11:43)
[2024-04-07 14:54] VITALS: BP 115/57; PULSE 96; RESP 18; TEMP 98; O2SAT 98
[2024-04-07] MEDS: FUROSEMIDE 40 MG/4 ML VIAL IVP ONE (18:31)
[2024-04-07 21:14] VITALS: BP 106/57; PULSE 111; RESP 18; TEMP 97.9; O2SAT 94
[2024-04-07] MEDS: POTASSIUM ACETATE IV SCH (22:08)
[2024-04-07] MEDS: [UNRECOGNIZED DRUG - OTHER] IV SCH (22:08)
[2024-04-07] MEDS: PPN IV SCH (22:08)
[2024-04-07] MEDS: SODIUM ACETATE IV SCH (22:08)
[2024-04-08] VITALS (7 sets, daily range): BP systolic 94–126; BP diastolic 53–65; PULSE 63–105; RESP 17–20; TEMP 97.5–98.4; O2SAT 93–96
[2024-04-08] MEDS: HEPARIN SODIUM,PORCINE 5,000 UNITS/ML VIAL SQ SCH (01:44)
[2024-04-08 07:23] LABS: BASOPHILS % (AUTO) 1.1 % (0.0-2.0); EOSINOPHILS % (AUTO) 4.5 % (1.0-6.0); HEMATOCRIT 22.7 % (41-53); HEMOGLOBIN 7.3 g/dL (13.5-17.5); LYMPHOCYTES # (AUTO) 1.7 K/uL (1.0-4.8); LYMPHOCYTES % (AUTO) 13.1 % (22.0-44.0); MEAN CORPUSCULAR HEMOGLOBIN 32.1 pg (26.0-34.0); MEAN CORPUSCULAR HGB CONC 32.3 G/dL (31.0-37.0); MEAN CORPUSCULAR VOLUME 100 fL (80-100); MONOCYTES # (AUTO) 1.1 K/uL (0.1-1.0); MONOCYTES % (AUTO) 8.2 % (2.0-9.0); NEUTROPHILS # (AUTO) 9.5 K/uL (1.8-7.7); NEUTROPHILS % (AUTO) 73.1 % (40.0-70.0); PLATELET COUNT (AUTO) 221 K/uL (150-450); RED BLOOD CELL COUNT(AUTO) 2.28 MIL/uL (4.50-5.90); RED CELL DISTRIBUTION WIDTH 19.2 % (11.5-14.5)
[2024-04-08 07:31] LABS: CALCIUM, TOTAL 8.7 mg/dL (8.8-10.5); CREATININE 1.58 mg/dL (0.60-1.30); MAGNESIUM 1.7 mg/dL (1.80-2.40); PHOSPHORUS 5.6 mg/dL (2.5-4.9); POTASSIUM 3.7 mmol/L (3.5-5.1)
[2024-04-08] MEDS: MAGNESIUM SULFATE 2 GM/WATER 50 ML IV ONE (09:23)
[2024-04-08] MEDS: FUROSEMIDE 40 MG/4 ML VIAL IVP ONE (17:32)
[2024-04-08] MEDS: [UNRECOGNIZED DRUG - OTHER] IV SCH (22:18)
[2024-04-08] MEDS: SODIUM ACETATE IV SCH (22:18)
[2024-04-08] MEDS: POTASSIUM ACETATE IV SCH (22:18)
[2024-04-08] MEDS: PPN IV SCH (22:18)
[2024-04-09] VITALS (9 sets, daily range): BP systolic 91–120; BP diastolic 54–67; PULSE 81–103; RESP 17–20; TEMP 96.7–97.5; O2SAT 94–98
[2024-04-09 07:00] LABS: CREATININE 1.47 mg/dL (0.60-1.30); MAGNESIUM 1.8 mg/dL (1.80-2.40); PHOSPHORUS 4.7 mg/dL (2.5-4.9); POTASSIUM 3.1 mmol/L (3.5-5.1)
[2024-04-09] MEDS: *CLINICAL-PERIPHERAL PARENTERAL NUTRITION DOSING CLINICAL ONE (09:22)
[2024-04-09] MEDS ORDERED: POTASSIUM CHLORIDE 10% 40 MEQ/30 ML LIQUID UDCUP PO ONE (14:30)
[2024-04-09] MEDS ORDERED: FUROSEMIDE 40 MG/4 ML VIAL IVP SCH (14:30)
[2024-04-09] MEDS ORDERED: SODIUM CHLORIDE 0.9% 500 ML IV ONE (14:34)
[2024-04-09] MEDS: POTASSIUM CHL 10 MEQ/WATER 50 ML IV SCH (14:46)
[2024-04-09] MEDS: BUMETANIDE 0.25 MG/ML 4 ML VIAL IVP SCH (17:52)
[2024-04-09] MEDS: ALBUMIN HUMAN 25%-25GM/100ML 100 ML IV SCH (20:10)
[2024-04-09] MEDS: [UNRECOGNIZED DRUG - OTHER] IV SCH (22:44)
[2024-04-09] MEDS: SODIUM ACETATE IV SCH (22:44)
[2024-04-09] MEDS: PPN IV SCH (22:44)
[2024-04-09] MEDS: SODIUM CHLORIDE IV SCH (22:44)
[2024-04-10] VITALS (15 sets, daily range): BP systolic 84–118; BP diastolic 50–86; PULSE 82–94; RESP 15–19; TEMP 95.6–98.5; O2SAT 94–98
[2024-04-10 07:03] LABS: BASOPHILS % (AUTO) 0.9 % (0.0-2.0); EOSINOPHILS % (AUTO) 5.9 % (1.0-6.0); LYMPHOCYTES # (AUTO) 1.7 K/uL (1.0-4.8); LYMPHOCYTES % (AUTO) 15.5 % (22.0-44.0); MEAN CORPUSCULAR HEMOGLOBIN 32.5 pg (26.0-34.0); MEAN CORPUSCULAR HGB CONC 33.1 G/dL (31.0-37.0); MEAN CORPUSCULAR VOLUME 98 fL (80-100); MONOCYTES # (AUTO) 0.9 K/uL (0.1-1.0); MONOCYTES % (AUTO) 8.2 % (2.0-9.0); NEUTROPHILS # (AUTO) 7.6 K/uL (1.8-7.7); NEUTROPHILS % (AUTO) 69.5 % (40.0-70.0); PLATELET COUNT (AUTO) 231 K/uL (150-450); RED BLOOD CELL COUNT(AUTO) 2.06 MIL/uL (4.50-5.90); RED CELL DISTRIBUTION WIDTH 18.4 % (11.5-14.5); WHITE BLOOD COUNT (AUTO) 10.9 K/uL (4.5-11.0)
[2024-04-10 07:17] LABS: HEMOGLOBIN 6.7 g/dL (13.5-17.5)
[2024-04-10 07:18] LABS: HEMATOCRIT 20.3 % (41-53)
[2024-04-10 07:24] LABS: CALCIUM, TOTAL 9.4 mg/dL (8.8-10.5); CREATININE 1.3 mg/dL (0.60-1.30); MAGNESIUM 1.4 mg/dL (1.80-2.40); PHOSPHORUS 4.1 mg/dL (2.5-4.9); POTASSIUM 3.6 mmol/L (3.5-5.1); VANCOMYCIN,RANDOM 10.7 mcg/mL (25.0-50.0)
[2024-04-10] MEDS: MAGNESIUM SULFATE 2 GM/WATER 50 ML IV ONE (10:55)
[2024-04-10] MEDS: PPN SOLUTION 1 EA, SODIUM CHLORIDE 60 MEQ, SODIUM PHOS,M-BASIC-D-BASIC 20 MEQ, POTASSIU... IV SCH (21:58)
[2024-04-11] VITALS (7 sets, daily range): BP systolic 100–119; BP diastolic 55–71; PULSE 84–106; RESP 17–18; TEMP 93–97.9; O2SAT 94–100
[2024-04-11 08:24] LABS: BASOPHILS % (AUTO) 0.8 % (0.0-2.0); EOSINOPHILS % (AUTO) 6.7 % (1.0-6.0); HEMATOCRIT 24.4 % (41-53); HEMOGLOBIN 8.5 g/dL (13.5-17.5); LYMPHOCYTES # (AUTO) 1.6 K/uL (1.0-4.8); LYMPHOCYTES % (AUTO) 18.6 % (22.0-44.0); MEAN CORPUSCULAR HEMOGLOBIN 32.6 pg (26.0-34.0); MEAN CORPUSCULAR HGB CONC 34.9 G/dL (31.0-37.0); MEAN CORPUSCULAR VOLUME 93 fL (80-100); MONOCYTES # (AUTO) 0.8 K/uL (0.1-1.0); MONOCYTES % (AUTO) 9.3 % (2.0-9.0); NEUTROPHILS # (AUTO) 5.5 K/uL (1.8-7.7); NEUTROPHILS % (AUTO) 64.6 % (40.0-70.0); PLATELET COUNT (AUTO) 210 K/uL (150-450); RED BLOOD CELL COUNT(AUTO) 2.61 MIL/uL (4.50-5.90); RED CELL DISTRIBUTION WIDTH 20.1 % (11.5-14.5); WHITE BLOOD COUNT (AUTO) 8.6 K/uL (4.5-11.0)
[2024-04-11 08:38] LABS: ANION GAP 10 mmol/L (8-16); CALCIUM, TOTAL 9.9 mg/dL (8.8-10.5); CARBON DIOXIDE 26 mmol/L (22-29); CHLORIDE 101 mmol/L (98-107); CREATININE 1.16 mg/dL (0.60-1.30); GLOMERULAR FILTR. RATE CALC > 60 mL/min (>60); GLUCOSE,RANDOM 93 mg/dL (70-110); PHOSPHORUS 4.1 mg/dL (2.5-4.9); POTASSIUM 3.3 mmol/L (3.5-5.1); SODIUM SERUM 137 mmol/L (136-145); UREA NITROGEN, BLOOD 26 mg/dL (7-18)
[2024-04-11] MEDS: MAGNESIUM SULFATE 2 GM in DEXTROSE 5%-WATER 100 ML IV ONE (12:01)
[2024-04-11] MEDS: POTASSIUM CHL 10 MEQ/WATER 50 ML IV SCH (12:04)
[2024-04-11] MEDS ORDERED: 0.9% SODIUM CHLORIDE 5 ML NEB SOLUTION NEB ONE (20:34)
[2024-04-11] MEDS: ALBUTEROL SULFATE 2.5 MG/0.5 ML NEB SOLUTION NEB PRN (20:39)
[2024-04-11] MEDS: PPN SOLUTION 1 EA, SODIUM CHLORIDE 60 MEQ, SODIUM PHOS,M-BASIC-D-BASIC 20 MEQ, POTASSIU... IV SCH (21:58)
[2024-04-12] VITALS (8 sets, daily range): BP systolic 84–128; BP diastolic 60–72; PULSE 98–117; RESP 16–30; TEMP 92.2–95.9; O2SAT 85–100
[2024-04-12] MEDS ORDERED: ROCURONIUM BROMIDE 10 MG/ML 5 ML VIAL ONE (05:44)
[2024-04-12] MEDS ORDERED: PROPOFOL 1% 20 ML VIAL IVP ONE (05:44)
[2024-04-12 06:05] LABS: BASOPHILS % (AUTO) 0.7 % (0.0-2.0); EOSINOPHILS % (AUTO) 0.8 % (1.0-6.0); HEMATOCRIT 27.9 % (41-53); HEMOGLOBIN 9.2 g/dL (13.5-17.5); LYMPHOCYTES # (AUTO) 0.5 K/uL (1.0-4.8); LYMPHOCYTES % (AUTO) 2.9 % (22.0-44.0); MEAN CORPUSCULAR HEMOGLOBIN 30.9 pg (26.0-34.0); MEAN CORPUSCULAR HGB CONC 32.8 G/dL (31.0-37.0); MEAN CORPUSCULAR VOLUME 94 fL (80-100); MONOCYTES # (AUTO) 0.3 K/uL (0.1-1.0); NEUTROPHILS # (AUTO) 14.9 K/uL (1.8-7.7); PLATELET COUNT (AUTO) 236 K/uL (150-450); RED BLOOD CELL COUNT(AUTO) 2.97 MIL/uL (4.50-5.90); RED CELL DISTRIBUTION WIDTH 20.4 % (11.5-14.5)
[2024-04-12 06:08] LABS: CALCIUM, TOTAL 9.9 mg/dL (8.8-10.5); CREATININE 1.37 mg/dL (0.60-1.30); MAGNESIUM 1.5 mg/dL (1.80-2.40); PHOSPHORUS 4.2 mg/dL (2.5-4.9); POTASSIUM 3.2 mmol/L (3.5-5.1)
[2024-04-12] MEDS ORDERED: 0.9% SODIUM CHLORIDE 10 ML SYRINGE IVP PRN (06:15)
[2024-04-12] MEDS: ALBUMIN HUMAN 25%-25GM/100ML 100 ML IV ONE (06:18)
[2024-04-12] MEDS: PHENYLEPHRINE HCL 400 MG in DEXTROSE 5%-WATER 210 ML IV PRN (06:21)
[2024-04-12 06:24] LABS: NEUTROPHILS % (AUTO) 93.6 % (40.0-70.0)
[2024-04-12] MEDS: CefTRIAXone 1 GM/DEXTROSE 50 ML IV ONE (06:35)
[2024-04-12] MEDS: SODIUM CHLORIDE 0.9% 2,450 ML IV ONE (06:46)
[2024-04-12] MEDS: NOREPINEPHRINE 8 MG/0.9 % NACL 250 ML IV PRN (06:47)
[2024-04-12 07:03] LABS: ABG BASE EXCESS -1.2 mmol/L (-2.0-3.0); ABG CARBOXYHEMOGLOBIN 0.3 % (0.5-1.5); ABG HCO3 23.7 mmol/L (21.0-28.0); ABG METHEMOGLOBIN 0.3 % (0.0-1.5); ABG OXYGEN CONTENT 13.9 mL/dL (15.0-23.0); ABG OXYGEN SATURATION 97.6 % (94.0-98.0); ABG PCO2 35 mmHg (35.0-48.0); ABG PH 7.434 (7.350-7.450); ABG TOTAL HEMOGLOBIN 10.1 G/dL (13.5-17.5); ALLEN TEST, BLOOD GAS POS; O2 DEVICE,BLOOD GAS NON-REB (ROOM AIR); PO2, ARTERIAL BG 98.4 mmHg (83.0-108.0); SITE, BLOOD GAS RT RADIAL; SOURCE, BLOOD GAS ARTERIAL; TEMPERATURE, FAHRENHEIT, BG 97.7 FAHREN (96.0-98.6)
[2024-04-12] MEDS ORDERED: SODIUM CHLORIDE 0.9% 250 ML IV ONE ×2 (08:41→13:37)
[2024-04-12 08:50] LABS: ANION GAP 14 mmol/L (8-16); CALCIUM, TOTAL 10.3 mg/dL (8.8-10.5); CARBON DIOXIDE 23 mmol/L (22-29); CHLORIDE 100 mmol/L (98-107); CREATININE 1.41 mg/dL (0.60-1.30); GLOMERULAR FILTR. RATE CALC 50 mL/min (>60); GLUCOSE,RANDOM 93 mg/dL (70-110); POTASSIUM 3.1 mmol/L (3.5-5.1); SODIUM SERUM 137 mmol/L (136-145); UREA NITROGEN, BLOOD 26 mg/dL (7-18)
[2024-04-12 08:55] LABS: ALANINE AMINOTRANSFERASE 10 U/L (12-78); ALBUMIN 2.7 g/dL (3.4-5.0); ALKALINE PHOSPHATASE 117 U/L (46-116); ASPARTATE AMINOTRANSFERASE 50 U/L (15-37); BILIRUBIN,TOTAL 0.8 mg/dL (0.1-1.0); LACTATE DEHYDROGENASE 162 U/L (85-227); TOTAL PROTEIN, SERUM 5.8 g/dL (6.4-8.2)
[2024-04-12 09:08] LABS: LACTIC ACID 4.3 mmol/L (0.4-2.0)
[2024-04-12] MEDS: MAGNESIUM SULFATE 2 GM/WATER 50 ML IV ONE (09:11)
[2024-04-12] MEDS: RINGERS SOLUTION,LACTATED 500 ML IV ONE (10:09)
[2024-04-12 11:50] LABS: GLUCOMETER DEV NAME(LOC) 5N.2C; GLUCOSE,POINT OF CARE 74 MG/DL (70-110)
[2024-04-12] MEDS: RINGERS SOLUTION,LACTATED 1,000 ML IV SCH (11:51)
[2024-04-12 13:19] LABS: CALCIUM, TOTAL 10.7 mg/dL (8.8-10.5); CREATININE 1.79 mg/dL (0.60-1.30); PHOSPHORUS 4.3 mg/dL (2.5-4.9); POTASSIUM 3.6 mmol/L (3.5-5.1)
[2024-04-12] MEDS: PIPERACILLIN/TAZO 3.375 GM/D5W 50 ML IV SCH (13:28)
[2024-04-12] MEDS: PROPOFOL 1000 MG/ISO-OSM 100 ML IV PRN (14:40)
[2024-04-12] MEDS ORDERED: PHENYLEPHRINE HCL IN 0.9% NACL 400 MCG/10 ML SYRINGE IVP ONE (14:51)
[2024-04-12] MEDS: SODIUM CHLORIDE 0.9% 1,000 ML IV ONE ×2 (15:09→18:01)
[2024-04-12] MEDS: MetroNIDAZOLE 500 MG/NACL 100 ML IV SCH (15:10)
[2024-04-12 15:27] LABS: ABG BASE EXCESS -9.1 mmol/L (-2.0-3.0); ABG CARBOXYHEMOGLOBIN 0.1 % (0.5-1.5); ABG HCO3 17.6 mmol/L (21.0-28.0); ABG METHEMOGLOBIN 0.1 % (0.0-1.5); ABG OXYGEN SATURATION 99.2 % (94.0-98.0); ABG PCO2 38 mmHg (35.0-48.0); ABG PH 7.288 (7.350-7.450); ABG TOTAL HEMOGLOBIN 11.9 G/dL (13.5-17.5); SOURCE, BLOOD GAS ARTERIAL; TEMPERATURE, FAHRENHEIT, BG 94.5 FAHREN (96.0-98.6)
[2024-04-12 15:28] LABS: ALLEN TEST, BLOOD GAS Positive; O2 DEVICE,BLOOD GAS VENTILATOR (ROOM AIR); PEEP,BG 5 cm H2O; PO2, ARTERIAL BG 182.1 mmHg (83.0-108.0); SITE, BLOOD GAS LFT RADIAL; VT, ABG 430 ml
[2024-04-12] MEDS: SODIUM BICARBONATE [ADULT] 8.4% 50 MEQ/50 ML SYRINGE IVP ONE (15:47)
[2024-04-12] MEDS: CASPOFUNGIN ACETATE 70 MG in SODIUM CHLORIDE 0.9% 250 ML IV ONE (17:19)
[2024-04-12 18:05] LABS: CALCIUM, TOTAL 10.4 mg/dL (8.8-10.5); CREATININE 1.75 mg/dL (0.60-1.30); MAGNESIUM 1.9 mg/dL (1.80-2.40); PHOSPHORUS 4.2 mg/dL (2.5-4.9)
[2024-04-12 18:10] LABS: POTASSIUM 2.9 mmol/L (3.5-5.1)
[2024-04-12] MEDS: DAPTOMYCIN 500 MG in SODIUM CHLORIDE 0.9% 50 ML IV SCH (21:01)
[2024-04-12] MEDS: POTASSIUM CHL 10 MEQ/WATER 50 ML IV SCH (21:01)
[2024-04-12] MEDS ORDERED: PPN SOLUTION 1 EA, SODIUM CHLORIDE 60 MEQ, SODIUM PHOS,M-BASIC-D-BASIC 20 MEQ, POTASSIU... IV SCH ×2 (22:00)
[2024-04-13] VITALS (13 sets, daily range): BP systolic 89–122; BP diastolic 44–80; PULSE 51–125; RESP 20–32; TEMP 93.5–95.9; O2SAT 88–100
[2024-04-13] MEDS: VASOPRESSIN 40 UNITS in DEXTROSE 5%-WATER 98 ML IV PRN (00:38)
[2024-04-13] MEDS: FentaNYL CIT 1000MCG/0.9% NACL 100 ML IV PRN (06:16)
[2024-04-13 06:24] LABS: CALCIUM, TOTAL 10.5 mg/dL (8.8-10.5); CREATININE 1.76 mg/dL (0.60-1.30); PHOSPHORUS 5.7 mg/dL (2.5-4.9)
[2024-04-13 06:40] LABS: HEMATOCRIT 34.1 % (41-53); MEAN CORPUSCULAR HEMOGLOBIN 31.3 pg (26.0-34.0); MEAN CORPUSCULAR HGB CONC 32.4 G/dL (31.0-37.0); MEAN CORPUSCULAR VOLUME 97 fL (80-100); PLATELET COUNT (AUTO) 243 K/uL (150-450); RED BLOOD CELL COUNT(AUTO) 3.52 MIL/uL (4.50-5.90); RED CELL DISTRIBUTION WIDTH 20.9 % (11.5-14.5)
[2024-04-13 07:31] LABS: BAND NEUTROPHILS % (MANUAL) 20 % (0-5); BASOPHILS % (MANUAL) 1 % (0-2); LYMPHOCYTES % (MANUAL) 6 % (22-44); MONOCYTES % (MANUAL) 7 % (2-9); MYELOCYTES % 2 % (0-0); REACTIVE LYMPHOCYTES 2 % (0-0); SEGMENTED NEUTROPHILS % 62 % (40-70); TOTAL CELLS COUNTED 100
[2024-04-13 08:51] LABS: ABG BASE EXCESS -6.2 mmol/L (-2.0-3.0); ABG CARBOXYHEMOGLOBIN 0.3 % (0.5-1.5); ABG HCO3 19.8 mmol/L (21.0-28.0); ABG METHEMOGLOBIN 0.3 % (0.0-1.5); ABG OXYGEN CONTENT 13.1 mL/dL (15.0-23.0); ABG OXYGEN SATURATION 85.9 % (94.0-98.0); ABG OXYHEMOGLOBIN 85.4 % (94.0-98.0); ABG PCO2 30 mmHg (35.0-48.0); ABG PH 7.409 (7.350-7.450); ABG TOTAL HEMOGLOBIN 10.9 G/dL (13.5-17.5); SOURCE, BLOOD GAS ARTERIAL; TEMPERATURE, FAHRENHEIT, BG 95.5 FAHREN (96.0-98.6)
[2024-04-13 08:52] LABS: ALLEN TEST, BLOOD GAS Positive; O2 DEVICE,BLOOD GAS VENTILATOR (ROOM AIR); PEEP,BG 5 cm H2O; PO2, ARTERIAL BG 46.9 mmHg (83.0-108.0); SITE, BLOOD GAS LFT RADIAL; VT, ABG 430 ml
[2024-04-13] MEDS ORDERED: SODIUM CHLORIDE 0.9% 500 ML IV ONE (11:04)
[2024-04-13] MEDS: *CLINICAL-MEROPENEM DOSING CLINICAL ONE (15:00)
[2024-04-13] MEDS ORDERED: HEPARIN SODIUM,PORCINE 1,000 UNITS/ML VIAL IVCATH PRN (16:30)
[2024-04-13] MEDS: MEROPENEM 1 GM in SODIUM CHLORIDE 0.9% 100 ML IV SCH (16:42)
[2024-04-13] MEDS: HEPARIN SODIUM,PORCINE 1,000 UNITS/ML VIAL IVCATH ONE ×2 (16:45)
[2024-04-13] MEDS ORDERED: SODIUM CHLORIDE 0.9% 250 ML IV ONE (17:37)
[2024-04-13] MEDS: CASPOFUNGIN ACETATE 50 MG in SODIUM CHLORIDE 0.9% 250 ML IV SCH (18:14)
[2024-04-13 23:04] LABS: APPEARANCE,URINE HAZY (CLEAR); BILIRUBIN,URINE NEGATIVE (NEGATIVE); COLOR,URINE YELLOW (YELLOW); GLUCOSE, URINE (UA) NEGATIVE (NEGATIVE); KETONES,URINE NEGATIVE (NEGATIVE); LEUKOCYTE ESTERASE ,URINE LARGE (NEGATIVE); NITRATE,URINE NEGATIVE (NEGATIVE); OCCULT BLOOD,URINE TRACE (NEGATIVE); PROTEIN,URINE 30-70 mg/dL (NEGATIVE); UROBILINOGEN,URINE <=1.0 mg/dL (<=1.0)
[2024-04-13 23:21] LABS: BACTERIA,URINE Many /HPF (None Seen); SQUAMOUS EPITHELIAL CELL,UR Few /LPF (None Seen)
[2024-04-14] VITALS (14 sets, daily range): BP systolic 106–132; BP diastolic 45–57; PULSE 93–119; RESP 20–24; TEMP 96.5–98.7; O2SAT 96–100
[2024-04-14] MEDS ORDERED: DOPamine 400MG/D5W[STANDARD] 250 ML IV ONE (03:26)
[2024-04-14] MEDS ORDERED: EPINEPHrine 5 MG in DEXTROSE 5%-WATER 245 ML IV PRN (03:30)
[2024-04-14 06:47] LABS: EOSINOPHILS % (AUTO) 0.5 % (1.0-6.0); HEMATOCRIT 27.4 % (41-53); HEMOGLOBIN 8.9 g/dL (13.5-17.5); LYMPHOCYTES # (AUTO) 1.7 K/uL (1.0-4.8); LYMPHOCYTES % (AUTO) 12.1 % (22.0-44.0); MEAN CORPUSCULAR HEMOGLOBIN 31.4 pg (26.0-34.0); MEAN CORPUSCULAR HGB CONC 32.6 G/dL (31.0-37.0); MEAN CORPUSCULAR VOLUME 96 fL (80-100); MONOCYTES # (AUTO) 1.4 K/uL (0.1-1.0); MONOCYTES % (AUTO) 9.9 % (2.0-9.0); NEUTROPHILS # (AUTO) 10.6 K/uL (1.8-7.7); NEUTROPHILS % (AUTO) 76.5 % (40.0-70.0); PLATELET COUNT (AUTO) 187 K/uL (150-450); RED BLOOD CELL COUNT(AUTO) 2.84 MIL/uL (4.50-5.90); RED CELL DISTRIBUTION WIDTH 20.9 % (11.5-14.5); WHITE BLOOD COUNT (AUTO) 13.8 K/uL (4.5-11.0)
[2024-04-14 07:10] LABS: ALBUMIN 1.6 g/dL (3.4-5.0); BILIRUBIN,TOTAL 1.6 mg/dL (0.1-1.0); CALCIUM, TOTAL 9.4 mg/dL (8.8-10.5); CREATININE 1.86 mg/dL (0.60-1.30); MAGNESIUM 1.7 mg/dL (1.80-2.40); PHOSPHORUS 6.8 mg/dL (2.5-4.9); TOTAL PROTEIN, SERUM 4.7 g/dL (6.4-8.2)
[2024-04-14] MEDS: MAGNESIUM SULFATE 1 GM in DEXTROSE 5%-WATER 50 ML IV ONE (10:11)
[2024-04-14 12:45] LABS: ABG CARBOXYHEMOGLOBIN 0.3 % (0.5-1.5); ABG HCO3 20.8 mmol/L (21.0-28.0); ABG METHEMOGLOBIN 0.3 % (0.0-1.5); ABG OXYGEN CONTENT 12.9 mL/dL (15.0-23.0); ABG OXYGEN SATURATION 94.5 % (94.0-98.0); ABG OXYHEMOGLOBIN 93.9 % (94.0-98.0); ABG PCO2 35 mmHg (35.0-48.0); ABG PH 7.378 (7.350-7.450); ABG TOTAL HEMOGLOBIN 9.7 G/dL (13.5-17.5); PO2, ARTERIAL BG 70.5 mmHg (83.0-108.0); SOURCE, BLOOD GAS ARTERIAL; TEMPERATURE, FAHRENHEIT, BG 98.5 FAHREN (96.0-98.6)
[2024-04-14 12:46] LABS: O2 DEVICE,BLOOD GAS VENTILATOR (ROOM AIR); PEEP,BG 8 cm H2O; SITE, BLOOD GAS ALINE; SPONTANEOUS VT, BG 514 ml; VT, ABG 430 ml
[2024-04-14] MEDS ORDERED: PPN IV PRN (22:00)
[2024-04-14] MEDS ORDERED: [UNRECOGNIZED DRUG - OTHER] IV PRN (22:00)
[2024-04-14] MEDS ORDERED: SODIUM PHOS M BASIC D BASIC IV PRN (22:00)
[2024-04-14] MEDS ORDERED: SODIUM CHLORIDE IV PRN (22:00)
[2024-04-15] VITALS (14 sets, daily range): BP systolic 104–133; BP diastolic 44–58; PULSE 79–110; RESP 20–24; TEMP 94.2–98.7; O2SAT 93–100
[2024-04-15 06:29] LABS: ALBUMIN 1.6 g/dL (3.4-5.0); BILIRUBIN,TOTAL 1.5 mg/dL (0.1-1.0); CALCIUM, TOTAL 9.3 mg/dL (8.8-10.5); CREATININE 2.11 mg/dL (0.60-1.30); MAGNESIUM 1.8 mg/dL (1.80-2.40); PHOSPHORUS 5.8 mg/dL (2.5-4.9); POTASSIUM 3.6 mmol/L (3.5-5.1); TOTAL PROTEIN, SERUM 4.4 g/dL (6.4-8.2)
[2024-04-15 06:36] LABS: HEMATOCRIT 26.3 % (41-53); HEMOGLOBIN 8.7 g/dL (13.5-17.5); MEAN CORPUSCULAR HEMOGLOBIN 31.9 pg (26.0-34.0); MEAN CORPUSCULAR HGB CONC 33.2 G/dL (31.0-37.0); MEAN CORPUSCULAR VOLUME 96 fL (80-100); PLATELET COUNT (AUTO) 145 K/uL (150-450); RED BLOOD CELL COUNT(AUTO) 2.74 MIL/uL (4.50-5.90); RED CELL DISTRIBUTION WIDTH 21.2 % (11.5-14.5); WHITE BLOOD COUNT (AUTO) 15.7 K/uL (4.5-11.0)
[2024-04-15 07:22] LABS: BAND NEUTROPHILS % (MANUAL) 3 % (0-5); EOSINOPHILS % (MANUAL) 6 % (1-6); LYMPHOCYTES % (MANUAL) 26 % (22-44); MONOCYTES % (MANUAL) 9 % (2-9); SEGMENTED NEUTROPHILS % 56 % (40-70); TOTAL CELLS COUNTED 100
[2024-04-15] MEDS: DEXMEDETOMIDINE HCL 400 MCG in SODIUM CHLORIDE 0.9% 96 ML IV PRN (09:30)
[2024-04-15] MEDS ORDERED: SODIUM CHLORIDE 0.9% 250 ML IV ONE (17:40)
[2024-04-16] VITALS (20 sets, daily range): BP systolic 96–139; BP diastolic 41–82; PULSE 84–103; RESP 16–27; TEMP 97.1–99.2; O2SAT 94–98
[2024-04-16 06:00] LABS: HEMATOCRIT 27.5 % (41-53); HEMOGLOBIN 8.9 g/dL (13.5-17.5); MEAN CORPUSCULAR HEMOGLOBIN 31.3 pg (26.0-34.0); MEAN CORPUSCULAR HGB CONC 32.4 G/dL (31.0-37.0); MEAN CORPUSCULAR VOLUME 96 fL (80-100); PLATELET COUNT (AUTO) 131 K/uL (150-450); RED BLOOD CELL COUNT(AUTO) 2.86 MIL/uL (4.50-5.90); RED CELL DISTRIBUTION WIDTH 21.2 % (11.5-14.5); WHITE BLOOD COUNT (AUTO) 14.4 K/uL (4.5-11.0)
[2024-04-16 06:21] LABS: ALBUMIN 1.5 g/dL (3.4-5.0); BILIRUBIN,TOTAL 1.3 mg/dL (0.1-1.0); CALCIUM, TOTAL 9.7 mg/dL (8.8-10.5); CREATININE 2.33 mg/dL (0.60-1.30); MAGNESIUM 1.8 mg/dL (1.80-2.40); PHOSPHORUS 6.3 mg/dL (2.5-4.9); POTASSIUM 3.5 mmol/L (3.5-5.1); TOTAL PROTEIN, SERUM 4.2 g/dL (6.4-8.2)
[2024-04-16 08:15] LABS: BAND NEUTROPHILS % (MANUAL) 5 % (0-5); LYMPHOCYTES % (MANUAL) 23 % (22-44); METAMYELOCYTES % 2 % (0-0); MONOCYTES % (MANUAL) 7 % (2-9); RBC MORPHOLOGY COMMENT ABNORMAL RBC MORPH; SEGMENTED NEUTROPHILS % 63 % (40-70); TOTAL CELLS COUNTED 100
[2024-04-16] MEDS ORDERED: HEPARIN SODIUM,PORCINE 1,000 UNITS/ML VIAL IVP ONE (12:00)
[2024-04-16] MEDS ORDERED: ALBUMIN HUMAN 25%-12.5GM/50ML IV BOTTLE IV ONE (12:00)
[2024-04-16 13:16] LABS: GLUCOMETER DEV NAME(LOC) ICU.S6; GLUCOSE,POINT OF CARE 82 MG/DL (70-110)
[2024-04-17] VITALS (22 sets, daily range): BP systolic 92–115; BP diastolic 41–47; PULSE 94–105; RESP 15–28; TEMP 98.2–99.9; O2SAT 93–98
[2024-04-17 06:59] LABS: HEMATOCRIT 23.7 % (41-53); HEMOGLOBIN 7.7 g/dL (13.5-17.5); MEAN CORPUSCULAR HEMOGLOBIN 31.1 pg (26.0-34.0); MEAN CORPUSCULAR HGB CONC 32.4 G/dL (31.0-37.0); MEAN CORPUSCULAR VOLUME 96 fL (80-100); PLATELET COUNT (AUTO) 85 K/uL (150-450); RED BLOOD CELL COUNT(AUTO) 2.48 MIL/uL (4.50-5.90); RED CELL DISTRIBUTION WIDTH 21.1 % (11.5-14.5); WHITE BLOOD COUNT (AUTO) 17.9 K/uL (4.5-11.0)
[2024-04-17 07:35] LABS: ALBUMIN 1.5 g/dL (3.4-5.0); BILIRUBIN,TOTAL 1.3 mg/dL (0.1-1.0); CALCIUM, TOTAL 9.2 mg/dL (8.8-10.5); CREATININE 2.41 mg/dL (0.60-1.30); POTASSIUM 3.3 mmol/L (3.5-5.1); TOTAL PROTEIN, SERUM 4.2 g/dL (6.4-8.2)
[2024-04-17 08:33] LABS: BAND NEUTROPHILS % (MANUAL) 8 % (0-5); LYMPHOCYTES % (MANUAL) 35 % (22-44); MONOCYTES % (MANUAL) 2 % (2-9); SEGMENTED NEUTROPHILS % 55 % (40-70); TOTAL CELLS COUNTED 100
[2024-04-17 08:34] LABS: RBC MORPHOLOGY COMMENT ABNORMAL RBC MORPH
[2024-04-17 11:11] LABS: MAGNESIUM 1.5 mg/dL (1.80-2.40)
[2024-04-17] MEDS ORDERED: HEPARIN SODIUM,PORCINE 1,000 UNITS/ML VIAL IVP ONE (12:00)
[2024-04-17] MEDS ORDERED: SODIUM CHLORIDE 0.9% 2,000 ML ONE (13:09)
[2024-04-17 17:15] LABS: GLUCOMETER DEV NAME(LOC) ICU.S6; GLUCOSE,POINT OF CARE 97 MG/DL (70-110)
[2024-04-17] MEDS: HEPARIN SODIUM,PORCINE 1,000 UNITS/ML VIAL IVCATH ONE ×2 (19:42)
[2024-04-18] VITALS (13 sets, daily range): BP systolic 92–136; BP diastolic 42–56; PULSE 80–95; RESP 20–22; TEMP 96.3–99.2; O2SAT 93–99
[2024-04-18 06:30] LABS: HEMATOCRIT 23.5 % (41-53); HEMOGLOBIN 7.8 g/dL (13.5-17.5); MEAN CORPUSCULAR HEMOGLOBIN 31.1 pg (26.0-34.0); MEAN CORPUSCULAR VOLUME 94 fL (80-100); PLATELET COUNT (AUTO) 60 K/uL (150-450); RED CELL DISTRIBUTION WIDTH 20.4 % (11.5-14.5); WHITE BLOOD COUNT (AUTO) 17.1 K/uL (4.5-11.0)
[2024-04-18 06:41] LABS: CALCIUM, TOTAL 8.9 mg/dL (8.8-10.5); CREATININE 2.17 mg/dL (0.60-1.30); MAGNESIUM 1.5 mg/dL (1.80-2.40); PHOSPHORUS 3.7 mg/dL (2.5-4.9)
[2024-04-18 06:50] LABS: BAND NEUTROPHILS % (MANUAL) 9 % (0-5); EOSINOPHILS % (MANUAL) 2 % (1-6); LYMPHOCYTES % (MANUAL) 30 % (22-44); MONOCYTES % (MANUAL) 7 % (2-9); RBC MORPHOLOGY COMMENT ABNORMAL R; SEGMENTED NEUTROPHILS % 52 % (40-70); TOTAL CELLS COUNTED 100
[2024-04-18] MEDS ORDERED: SODIUM CHLORIDE 0.9% 250 ML IV ONE (09:48)
[2024-04-18] MEDS: POTASSIUM CHL 10 MEQ/WATER 50 ML IV SCH (16:49)
[2024-04-18 18:21] LABS: GLUCOMETER DEV NAME(LOC) ICUN.5; GLUCOSE,POINT OF CARE 140 MG/DL (70-110)
[2024-04-18] MEDS: MAGNESIUM SULFATE 1 GM in DEXTROSE 5%-WATER 50 ML IV ONE (18:44)
[2024-04-18 19:06] LABS: GLUCOMETER DEV NAME(LOC) ICU.S6; GLUCOSE,POINT OF CARE 135 MG/DL (70-110)
[2024-04-18 20:25] LABS: CREATININE 2.39 mg/dL (0.60-1.30); MAGNESIUM 1.5 mg/dL (1.80-2.40); PHOSPHORUS 3.7 mg/dL (2.5-4.9)
[2024-04-18] MEDS: DAPTOMYCIN 500 MG in SODIUM CHLORIDE 0.9% 50 ML IV SCH (20:52)
[2024-04-18] MEDS: POTASSIUM CHLORIDE 10% 40 MEQ/30 ML LIQUID UDCUP GT ONE (22:12)
[2024-04-19] VITALS (22 sets, daily range): BP systolic 87–123; BP diastolic 33–55; PULSE 83–111; RESP 14–30; TEMP 95.9–98.4; O2SAT 93–100
[2024-04-19 03:41] LABS: GLUCOMETER DEV NAME(LOC) ICU.S6; GLUCOSE,POINT OF CARE 141 MG/DL (70-110)
[2024-04-19 05:07] LABS: HEMATOCRIT 26.2 % (41-53); HEMOGLOBIN 8.5 g/dL (13.5-17.5); MEAN CORPUSCULAR HEMOGLOBIN 30.6 pg (26.0-34.0); MEAN CORPUSCULAR HGB CONC 32.5 G/dL (31.0-37.0); MEAN CORPUSCULAR VOLUME 94 fL (80-100); PLATELET COUNT (AUTO) 77 K/uL (150-450); RED BLOOD CELL COUNT(AUTO) 2.78 MIL/uL (4.50-5.90); RED CELL DISTRIBUTION WIDTH 20.7 % (11.5-14.5)
[2024-04-19 05:12] LABS: CALCIUM, TOTAL 9.5 mg/dL (8.8-10.5); CREATININE 2.58 mg/dL (0.60-1.30); MAGNESIUM 2.2 mg/dL (1.80-2.40); PHOSPHORUS 3.6 mg/dL (2.5-4.9); POTASSIUM 3.1 mmol/L (3.5-5.1)
[2024-04-19 05:48] LABS: BAND NEUTROPHILS % (MANUAL) 6 % (0-5); EOSINOPHILS % (MANUAL) 4 % (1-6); LYMPHOCYTES % (MANUAL) 18 % (22-44); MONOCYTES % (MANUAL) 10 % (2-9); SEGMENTED NEUTROPHILS % 62 % (40-70); TOTAL CELLS COUNTED 100
[2024-04-19 06:40] LABS: GLUCOMETER DEV NAME(LOC) ICU.S6; GLUCOSE,POINT OF CARE 128 MG/DL (70-110)
[2024-04-19] MEDS ORDERED: LIDOCAINE/PF 1% 2 ML VIAL IM ONE (12:00)
[2024-04-19 13:20] LABS: GLUCOMETER DEV NAME(LOC) ICU.S6; GLUCOSE,POINT OF CARE 138 MG/DL (70-110)
[2024-04-19] MEDS ORDERED: SODIUM CHLORIDE 0.9% 500 ML IV ONE (15:13)
[2024-04-19] MEDS: ACETAMINOPHEN 650 MG/20.3 ML SOLUTION UDCUP PO PRN (16:21)
[2024-04-19] MEDS: HEPARIN SODIUM,PORCINE 1,000 UNITS/ML VIAL IVCATH ONE ×2 (16:30)
[2024-04-19] MEDS: VANCOMYCIN HCL 125 MG/2.5 ML SOLUTION ORAL.SYG NG SCH (17:50)
[2024-04-19 18:51] LABS: GLUCOMETER DEV NAME(LOC) ICU.S6; GLUCOSE,POINT OF CARE 142 MG/DL (70-110)
[2024-04-20] VITALS (15 sets, daily range): BP systolic 97–115; BP diastolic 42–53; PULSE 89–97; RESP 14–26; TEMP 97–98.6; O2SAT 95–100
[2024-04-20 05:50] LABS: HEMATOCRIT 26.3 % (41-53); HEMOGLOBIN 8.4 g/dL (13.5-17.5); MEAN CORPUSCULAR HEMOGLOBIN 30.5 pg (26.0-34.0); MEAN CORPUSCULAR HGB CONC 32.2 G/dL (31.0-37.0); MEAN CORPUSCULAR VOLUME 95 fL (80-100); PLATELET COUNT (AUTO) 99 K/uL (150-450); RED BLOOD CELL COUNT(AUTO) 2.77 MIL/uL (4.50-5.90); RED CELL DISTRIBUTION WIDTH 20.6 % (11.5-14.5); WHITE BLOOD COUNT (AUTO) 18.9 K/uL (4.5-11.0)
[2024-04-20 06:20] LABS: ALBUMIN 1.3 g/dL (3.4-5.0); BILIRUBIN,TOTAL 0.9 mg/dL (0.1-1.0); CALCIUM, TOTAL 9.1 mg/dL (8.8-10.5); CREATININE 2.33 mg/dL (0.60-1.30); MAGNESIUM 1.7 mg/dL (1.80-2.40); PHOSPHORUS 3.2 mg/dL (2.5-4.9); POTASSIUM 3.2 mmol/L (3.5-5.1); TOTAL PROTEIN, SERUM 4.5 g/dL (6.4-8.2)
[2024-04-20 08:51] LABS: BAND NEUTROPHILS % (MANUAL) 4 % (0-5); EOSINOPHILS % (MANUAL) 5 % (1-6); LYMPHOCYTES % (MANUAL) 26 % (22-44); MONOCYTES % (MANUAL) 8 % (2-9); SEGMENTED NEUTROPHILS % 57 % (40-70); TOTAL CELLS COUNTED 100
[2024-04-20] MEDS ORDERED: MIDODRINE HCL 2.5 MG TABLET PO SCH (09:00)
[2024-04-20 09:30] LABS: ABG BASE EXCESS 3.5 mmol/L (-2.0-3.0); ABG CARBOXYHEMOGLOBIN 0.2 % (0.5-1.5); ABG HCO3 27.5 mmol/L (21.0-28.0); ABG METHEMOGLOBIN 0.3 % (0.0-1.5); ABG OXYGEN CONTENT 11.9 mL/dL (15.0-23.0); ABG OXYGEN SATURATION 94.6 % (94.0-98.0); ABG OXYHEMOGLOBIN 94.1 % (94.0-98.0); ABG PCO2 36 mmHg (35.0-48.0); ABG PH 7.494 (7.350-7.450); ABG TOTAL HEMOGLOBIN 8.9 G/dL (13.5-17.5); CPAP, BG 0 cm H2O; O2 DEVICE,BLOOD GAS VENTILATOR (ROOM AIR); PO2, ARTERIAL BG 67.6 mmHg (83.0-108.0); PRESSURE SUPPORT, BG 8 cm H2O; SITE, BLOOD GAS ARTERIAL LINE; SOURCE, BLOOD GAS ARTERIAL; SPONTANEOUS VT, BG 620 ml; TEMPERATURE, FAHRENHEIT, BG 98.7 FAHREN (96.0-98.6); VENT MODE, BG CPAP (ROOM AIR)
[2024-04-20] MEDS: MIDODRINE HCL 5 MG TABLET PO SCH (09:34)
[2024-04-20] MEDS ORDERED: SODIUM CHLORIDE 0.9% 500 ML IV ONE (11:30)
[2024-04-20] MEDS: POTASSIUM CHLORIDE 10% 40 MEQ/30 ML LIQUID UDCUP GT ONE (12:31)
[2024-04-20] MEDS: ALBUMIN HUMAN 25%-25GM/100ML 100 ML IV SCH (12:36)
[2024-04-20] MEDS: MAGNESIUM SULFATE 2 GM/WATER 50 ML IV ONE (12:37)
[2024-04-21] VITALS (14 sets, daily range): BP systolic 93–117; BP diastolic 46–56; PULSE 84–100; RESP 16–25; TEMP 96.3–97.8; O2SAT 96–100
[2024-04-21 06:00] LABS: BASOPHILS % (AUTO) 0.5 % (0.0-2.0); HEMATOCRIT 23.8 % (41-53); HEMOGLOBIN 7.6 g/dL (13.5-17.5); LYMPHOCYTES % (AUTO) 24.2 % (22.0-44.0); MEAN CORPUSCULAR HEMOGLOBIN 30.7 pg (26.0-34.0); MEAN CORPUSCULAR HGB CONC 32.1 G/dL (31.0-37.0); MEAN CORPUSCULAR VOLUME 96 fL (80-100); MONOCYTES # (AUTO) 2.4 K/uL (0.1-1.0); MONOCYTES % (AUTO) 14.6 % (2.0-9.0); NEUTROPHILS # (AUTO) 8.5 K/uL (1.8-7.7); NEUTROPHILS % (AUTO) 51.7 % (40.0-70.0); PLATELET COUNT (AUTO) 175 K/uL (150-450); RED BLOOD CELL COUNT(AUTO) 2.48 MIL/uL (4.50-5.90); RED CELL DISTRIBUTION WIDTH 21.2 % (11.5-14.5); WHITE BLOOD COUNT (AUTO) 16.4 K/uL (4.5-11.0)
[2024-04-21 06:33] LABS: ALBUMIN 1.9 g/dL (3.4-5.0); BILIRUBIN,TOTAL 0.9 mg/dL (0.1-1.0); CALCIUM, TOTAL 9.5 mg/dL (8.8-10.5); CREATININE 2.69 mg/dL (0.60-1.30); MAGNESIUM 2.1 mg/dL (1.80-2.40); PHOSPHORUS 3.3 mg/dL (2.5-4.9); POTASSIUM 3.3 mmol/L (3.5-5.1); TOTAL PROTEIN, SERUM 4.5 g/dL (6.4-8.2)
[2024-04-21] MEDS: POTASSIUM CHLORIDE 20 MEQ ER TABLET PO ONE (10:50)
[2024-04-22] VITALS (19 sets, daily range): BP systolic 93–119; BP diastolic 43–71; PULSE 86–105; RESP 18–23; TEMP 97.1–98.6; O2SAT 90–100
[2024-04-22 06:16] LABS: BASOPHILS % (AUTO) 0.5 % (0.0-2.0); EOSINOPHILS % (AUTO) 8.5 % (1.0-6.0); HEMATOCRIT 23.1 % (41-53); HEMOGLOBIN 7.5 g/dL (13.5-17.5); LYMPHOCYTES # (AUTO) 3.5 K/uL (1.0-4.8); LYMPHOCYTES % (AUTO) 22.3 % (22.0-44.0); MEAN CORPUSCULAR HEMOGLOBIN 31.3 pg (26.0-34.0); MEAN CORPUSCULAR HGB CONC 32.6 G/dL (31.0-37.0); MEAN CORPUSCULAR VOLUME 96 fL (80-100); MONOCYTES # (AUTO) 1.9 K/uL (0.1-1.0); MONOCYTES % (AUTO) 12.2 % (2.0-9.0); NEUTROPHILS # (AUTO) 8.8 K/uL (1.8-7.7); NEUTROPHILS % (AUTO) 56.5 % (40.0-70.0); PLATELET COUNT (AUTO) 251 K/uL (150-450); RED BLOOD CELL COUNT(AUTO) 2.41 MIL/uL (4.50-5.90); RED CELL DISTRIBUTION WIDTH 21.9 % (11.5-14.5); WHITE BLOOD COUNT (AUTO) 15.5 K/uL (4.5-11.0)
[2024-04-22 06:55] LABS: CALCIUM, TOTAL 9.9 mg/dL (8.8-10.5); CREATININE 2.54 mg/dL (0.60-1.30)
[2024-04-22 07:05] LABS: POTASSIUM 2.9 mmol/L (3.5-5.1)
[2024-04-22] MEDS: POTASSIUM CHLORIDE 10% 40 MEQ/30 ML LIQUID UDCUP NG ONE (07:49)
[2024-04-22] MEDS ORDERED: HEPARIN SODIUM,PORCINE 1,000 UNITS/ML VIAL ONE (12:00)
[2024-04-22] MEDS ORDERED: CHLORHEXIDINE GLUCONATE 4% 118 ML TOPICAL LIQUID TP SCH (12:45)
[2024-04-22] MEDS ORDERED: HEPARIN SODIUM,PORCINE 1,000 UNITS/ML VIAL IVCATH PRN (16:45)
[2024-04-22] MEDS: HEPARIN SODIUM,PORCINE 1,000 UNITS/ML VIAL IVCATH ONE (17:42)
[2024-04-22] MEDS: HEPARIN SODIUM,PORCINE 1,000 UNITS/ML VIAL IVCATH PRN (17:43)
[2024-04-22] MEDS: CHLORHEXIDINE GLUCONATE 4% 118 ML TOPICAL LIQUID TP SCH (23:50)
[2024-04-23] VITALS (25 sets, daily range): BP systolic 101–145; BP diastolic 50–71; PULSE 74–111; RESP 19–27; TEMP 96–98.9; O2SAT 90–100
[2024-04-23 05:53] LABS: CALCIUM, TOTAL 10.2 mg/dL (8.8-10.5); CREATININE 2.31 mg/dL (0.60-1.30)
[2024-04-23 06:04] LABS: BASOPHILS % (AUTO) 0.5 % (0.0-2.0); EOSINOPHILS % (AUTO) 5.7 % (1.0-6.0); HEMATOCRIT 21.5 % (41-53); LYMPHOCYTES # (AUTO) 3.2 K/uL (1.0-4.8); LYMPHOCYTES % (AUTO) 23.8 % (22.0-44.0); MEAN CORPUSCULAR HEMOGLOBIN 31.2 pg (26.0-34.0); MEAN CORPUSCULAR HGB CONC 32.4 G/dL (31.0-37.0); MEAN CORPUSCULAR VOLUME 96 fL (80-100); MONOCYTES % (AUTO) 15.2 % (2.0-9.0); NEUTROPHILS # (AUTO) 7.3 K/uL (1.8-7.7); NEUTROPHILS % (AUTO) 54.8 % (40.0-70.0); PLATELET COUNT (AUTO) 289 K/uL (150-450); RED BLOOD CELL COUNT(AUTO) 2.24 MIL/uL (4.50-5.90); RED CELL DISTRIBUTION WIDTH 22.7 % (11.5-14.5); WHITE BLOOD COUNT (AUTO) 13.3 K/uL (4.5-11.0)
[2024-04-23] MEDS: EPOETIN ALFA 10,000 UNITS/ML VIAL SQ SCH (08:39)
[2024-04-23 08:40] LABS: INR 1.3 (0.9-1.1); PROTHROMBIN TIME 13.5 SEC (9.4-11.6)
[2024-04-23] MEDS ORDERED: SODIUM CHLORIDE 0.9% 500 ML IV ONE ×2 (09:50→23:37)
[2024-04-23] MEDS ORDERED: ROCURONIUM BROMIDE 10 MG/ML 5 ML VIAL IVP ONE ×2 (11:15→13:00)
[2024-04-23] MEDS: FentaNYL CIT 1000MCG/0.9% NACL 100 ML IV PRN (11:39)
[2024-04-23] MEDS ORDERED: HEPARIN SODIUM,PORCINE 1,000 UNITS/ML VIAL IVP ONE (16:28)
[2024-04-24] VITALS (21 sets, daily range): BP systolic 100–152; BP diastolic 46–91; PULSE 64–101; RESP 18–29; TEMP 96.1–99.1; O2SAT 92–100
[2024-04-24 06:16] LABS: BASOPHILS % (AUTO) 0.4 % (0.0-2.0); EOSINOPHILS % (AUTO) 3.7 % (1.0-6.0); HEMATOCRIT 24.4 % (41-53); LYMPHOCYTES # (AUTO) 2.5 K/uL (1.0-4.8); LYMPHOCYTES % (AUTO) 18.9 % (22.0-44.0); MEAN CORPUSCULAR HEMOGLOBIN 31.4 pg (26.0-34.0); MEAN CORPUSCULAR VOLUME 95 fL (80-100); MONOCYTES # (AUTO) 2.3 K/uL (0.1-1.0); MONOCYTES % (AUTO) 17.7 % (2.0-9.0); NEUTROPHILS # (AUTO) 7.8 K/uL (1.8-7.7); NEUTROPHILS % (AUTO) 59.3 % (40.0-70.0); PLATELET COUNT (AUTO) 250 K/uL (150-450); RED BLOOD CELL COUNT(AUTO) 2.56 MIL/uL (4.50-5.90); RED CELL DISTRIBUTION WIDTH 21.9 % (11.5-14.5); WHITE BLOOD COUNT (AUTO) 13.1 K/uL (4.5-11.0)
[2024-04-24 06:28] LABS: CALCIUM, TOTAL 9.6 mg/dL (8.8-10.5); CREATININE 1.59 mg/dL (0.60-1.30)
[2024-04-24 06:36] LABS: POTASSIUM 2.8 mmol/L (3.5-5.1)
[2024-04-24] MEDS: HEPARIN SODIUM,PORCINE 1,000 UNITS/ML VIAL IVCATH ONE ×3 (10:15→10:31)
[2024-04-24] MEDS: DAPTOMYCIN 500 MG in SODIUM CHLORIDE 0.9% 50 ML IV SCH (11:21)
[2024-04-24] MEDS ORDERED: SODIUM CHLORIDE 0.9% 250 ML IV ONE ×2 (11:38)
[2024-04-24] MEDS ORDERED: CeFAZolin 1 GM/DEXTROSE 50 ML IV ONE (15:45)
[2024-04-24] MEDS: CeFAZolin 1 GM/DEXTROSE 50 ML IV ONE (18:44)
[2024-04-25] VITALS (13 sets, daily range): BP systolic 103–123; BP diastolic 46–56; PULSE 82–117; RESP 20–27; TEMP 97.7–99.7; O2SAT 94–99
[2024-04-25 06:20] LABS: BASOPHILS % (AUTO) 0.5 % (0.0-2.0); EOSINOPHILS % (AUTO) 2.1 % (1.0-6.0); HEMATOCRIT 24.2 % (41-53); HEMOGLOBIN 7.8 g/dL (13.5-17.5); LYMPHOCYTES # (AUTO) 2.1 K/uL (1.0-4.8); LYMPHOCYTES % (AUTO) 17.6 % (22.0-44.0); MEAN CORPUSCULAR HEMOGLOBIN 30.8 pg (26.0-34.0); MEAN CORPUSCULAR HGB CONC 32.1 G/dL (31.0-37.0); MEAN CORPUSCULAR VOLUME 96 fL (80-100); MONOCYTES # (AUTO) 1.9 K/uL (0.1-1.0); MONOCYTES % (AUTO) 16.2 % (2.0-9.0); NEUTROPHILS # (AUTO) 7.6 K/uL (1.8-7.7); NEUTROPHILS % (AUTO) 63.6 % (40.0-70.0); PLATELET COUNT (AUTO) 238 K/uL (150-450); RED BLOOD CELL COUNT(AUTO) 2.53 MIL/uL (4.50-5.90); RED CELL DISTRIBUTION WIDTH 21.9 % (11.5-14.5)
[2024-04-25 06:36] LABS: ANION GAP 8 mmol/L (8-16); CARBON DIOXIDE 28 mmol/L (22-29); CHLORIDE 104 mmol/L (98-107); CREATININE 1.15 mg/dL (0.60-1.30); GLOMERULAR FILTR. RATE CALC > 60 mL/min (>60); GLUCOSE,RANDOM 117 mg/dL (70-110); SODIUM SERUM 140 mmol/L (136-145); UREA NITROGEN, BLOOD 18 mg/dL (7-18)
[2024-04-25 06:43] LABS: POTASSIUM 2.8 mmol/L (3.5-5.1)
[2024-04-25] MEDS ORDERED: POTASSIUM CHL 10 MEQ/WATER 50 ML IV SCH (08:15)
[2024-04-25] MEDS: POTASSIUM CHLORIDE 10% 40 MEQ/30 ML LIQUID UDCUP PEG ONE (08:46)
[2024-04-25 17:18] LABS: ALBUMIN 2.9 g/dL (3.4-5.0); BILIRUBIN,TOTAL 1.6 mg/dL (0.1-1.0); CALCIUM, TOTAL 10.6 mg/dL (8.8-10.5); CREATININE 1.4 mg/dL (0.60-1.30); POTASSIUM 3.5 mmol/L (3.5-5.1); TOTAL PROTEIN, SERUM 5.2 g/dL (6.4-8.2)
[2024-04-25] MEDS: HEPARIN SODIUM,PORCINE 1,000 UNITS/ML VIAL IVCATH ONE (20:21)
[2024-04-26] VITALS (20 sets, daily range): BP systolic 88–142; BP diastolic 37–64; PULSE 99–111; RESP 20–27; TEMP 97.6–98.5; O2SAT 91–99
[2024-04-26 06:12] LABS: BASOPHILS % (AUTO) 0.6 % (0.0-2.0); EOSINOPHILS % (AUTO) 2.5 % (1.0-6.0); HEMATOCRIT 25.7 % (41-53); HEMOGLOBIN 8.5 g/dL (13.5-17.5); LYMPHOCYTES # (AUTO) 2.2 K/uL (1.0-4.8); LYMPHOCYTES % (AUTO) 18.7 % (22.0-44.0); MEAN CORPUSCULAR HEMOGLOBIN 31.8 pg (26.0-34.0); MEAN CORPUSCULAR VOLUME 96 fL (80-100); MONOCYTES # (AUTO) 2.2 K/uL (0.1-1.0); MONOCYTES % (AUTO) 18.7 % (2.0-9.0); NEUTROPHILS # (AUTO) 7.1 K/uL (1.8-7.7); NEUTROPHILS % (AUTO) 59.5 % (40.0-70.0); PLATELET COUNT (AUTO) 284 K/uL (150-450); RED BLOOD CELL COUNT(AUTO) 2.66 MIL/uL (4.50-5.90); RED CELL DISTRIBUTION WIDTH 21.5 % (11.5-14.5); WHITE BLOOD COUNT (AUTO) 11.9 K/uL (4.5-11.0)
[2024-04-26 06:23] LABS: CALCIUM, TOTAL 10.6 mg/dL (8.8-10.5); CREATININE 1.24 mg/dL (0.60-1.30); MAGNESIUM 1.3 mg/dL (1.80-2.40); POTASSIUM 3.2 mmol/L (3.5-5.1)
[2024-04-27] VITALS (12 sets, daily range): BP systolic 102–113; BP diastolic 47–95; PULSE 102–108; RESP 20–28; TEMP 98.3–98.7; O2SAT 96–100
[2024-04-27 05:44] LABS: BASOPHILS % (AUTO) 0.6 % (0.0-2.0); EOSINOPHILS % (AUTO) 2.4 % (1.0-6.0); HEMATOCRIT 23.8 % (41-53); HEMOGLOBIN 7.7 g/dL (13.5-17.5); LYMPHOCYTES # (AUTO) 2.2 K/uL (1.0-4.8); LYMPHOCYTES % (AUTO) 19.7 % (22.0-44.0); MEAN CORPUSCULAR HEMOGLOBIN 31.3 pg (26.0-34.0); MEAN CORPUSCULAR HGB CONC 32.4 G/dL (31.0-37.0); MEAN CORPUSCULAR VOLUME 97 fL (80-100); MONOCYTES # (AUTO) 2.2 K/uL (0.1-1.0); MONOCYTES % (AUTO) 19.4 % (2.0-9.0); NEUTROPHILS # (AUTO) 6.5 K/uL (1.8-7.7); NEUTROPHILS % (AUTO) 57.9 % (40.0-70.0); PLATELET COUNT (AUTO) 242 K/uL (150-450); RED BLOOD CELL COUNT(AUTO) 2.46 MIL/uL (4.50-5.90); RED CELL DISTRIBUTION WIDTH 21.7 % (11.5-14.5); WHITE BLOOD COUNT (AUTO) 11.3 K/uL (4.5-11.0)
[2024-04-27 06:08] LABS: ANION GAP 7 mmol/L (8-16); CALCIUM, TOTAL 10.1 mg/dL (8.8-10.5); CARBON DIOXIDE 29 mmol/L (22-29); CHLORIDE 106 mmol/L (98-107); CREATININE 1.15 mg/dL (0.60-1.30); GLOMERULAR FILTR. RATE CALC > 60 mL/min (>60); GLUCOSE,RANDOM 116 mg/dL (70-110); PHOSPHORUS 3.5 mg/dL (2.5-4.9); POTASSIUM 3.1 mmol/L (3.5-5.1); SODIUM SERUM 142 mmol/L (136-145); UREA NITROGEN, BLOOD 20 mg/dL (7-18)
[2024-04-27] MEDS ORDERED: SODIUM CHLORIDE 0.9% 250 ML IV ONE ×2 (08:13→16:09)
[2024-04-27] MEDS: POTASSIUM CHL 10 MEQ/WATER 50 ML IV ONE (08:16)
[2024-04-27] MEDS: MAGNESIUM SULFATE 2 GM/WATER 50 ML IV ONE (08:16)
[2024-04-27 11:54] LABS: MAGNESIUM 1.6 mg/dL (1.80-2.40); POTASSIUM 3.4 mmol/L (3.5-5.1)
[2024-04-27] MEDS: MAGNESIUM SULFATE 1 GM in DEXTROSE 5%-WATER 50 ML IV ONE (16:06)
[2024-04-27] MEDS ORDERED: HEPARIN SODIUM,PORCINE 1,000 UNITS/ML VIAL IVP ONE (17:40)
[2024-04-28] VITALS (22 sets, daily range): BP systolic 83–141; BP diastolic 41–94; PULSE 83–104; RESP 20–29; TEMP 97.7–98.3; O2SAT 94–98
[2024-04-28 06:35] LABS: CALCIUM, TOTAL 11.4 mg/dL (8.8-10.5); CREATININE 1.31 mg/dL (0.60-1.30); MAGNESIUM 1.7 mg/dL (1.80-2.40); PHOSPHORUS 3.8 mg/dL (2.5-4.9); POTASSIUM 3.3 mmol/L (3.5-5.1)
[2024-04-28] MEDS ORDERED: SODIUM CHLORIDE 0.9% 2,000 ML ONE (08:34)
[2024-04-28] MEDS ORDERED: HEPARIN SODIUM,PORCINE 1,000 UNITS/ML VIAL ONE (12:00)
[2024-04-28] MEDS: ALBUMIN HUMAN 25%-12.5GM/50ML 50 ML IV PRN (17:13)
[2024-04-29] VITALS (14 sets, daily range): BP systolic 96–122; BP diastolic 44–58; PULSE 81–107; RESP 20–28; TEMP 95–99.4; O2SAT 90–99
[2024-04-29 06:26] LABS: BASOPHILS % (AUTO) 1.8 % (0.0-2.0); EOSINOPHILS % (AUTO) 2.5 % (1.0-6.0); HEMATOCRIT 32.4 % (41-53); HEMOGLOBIN 10.5 g/dL (13.5-17.5); LYMPHOCYTES # (AUTO) 2.1 K/uL (1.0-4.8); LYMPHOCYTES % (AUTO) 31.9 % (22.0-44.0); MEAN CORPUSCULAR HEMOGLOBIN 31.9 pg (26.0-34.0); MEAN CORPUSCULAR HGB CONC 32.5 G/dL (31.0-37.0); MEAN CORPUSCULAR VOLUME 98 fL (80-100); MONOCYTES # (AUTO) 1.1 K/uL (0.1-1.0); MONOCYTES % (AUTO) 16.8 % (2.0-9.0); NEUTROPHILS # (AUTO) 3.1 K/uL (1.8-7.7); PLATELET COUNT (AUTO) 167 K/uL (150-450); RED CELL DISTRIBUTION WIDTH 21.9 % (11.5-14.5); WHITE BLOOD COUNT (AUTO) 6.6 K/uL (4.5-11.0)
[2024-04-29 06:30] LABS: ANION GAP 6 mmol/L (8-16); CALCIUM, TOTAL 11.2 mg/dL (8.8-10.5); CARBON DIOXIDE 28 mmol/L (22-29); CHLORIDE 105 mmol/L (98-107); CREATININE 1.02 mg/dL (0.60-1.30); GLOMERULAR FILTR. RATE CALC > 60 mL/min (>60); GLUCOSE,RANDOM 83 mg/dL (70-110); PHOSPHORUS 3.3 mg/dL (2.5-4.9); POTASSIUM 3.3 mmol/L (3.5-5.1); SODIUM SERUM 139 mmol/L (136-145); UREA NITROGEN, BLOOD 18 mg/dL (7-18)
[2024-04-29] MEDS: FentaNYL CITRATE PF 100 MCG/2 ML VIAL IVP ONE (10:04)
[2024-04-29] MEDS: MIDAZOLAM HCL 2 MG/2 ML VIAL IVP ONE (10:06)
[2024-04-29] MEDS: ROCURONIUM BROMIDE 10 MG/ML 5 ML VIAL IVP ONE (10:10)
[2024-04-29] MEDS ORDERED: SODIUM CHLORIDE 0.9% 250 ML IV ONE (11:11)
[2024-04-29] MEDS: MAGNESIUM SULFATE 3 GM in DEXTROSE 5%-WATER 100 ML IV ONE (11:16)
[2024-04-29] MEDS: POTASSIUM CHL 10 MEQ/WATER 50 ML IV ONE (11:16)
[2024-04-30] VITALS (23 sets, daily range): BP systolic 98–135; BP diastolic 40–53; PULSE 91–107; RESP 20–35; TEMP 96–98.6; O2SAT 88–100
[2024-04-30] MEDS ORDERED: SODIUM CHLORIDE 0.9% 2,000 ML ONE (04:50)
[2024-04-30 06:17] LABS: BASOPHILS % (AUTO) 0.7 % (0.0-2.0); EOSINOPHILS % (AUTO) 1.7 % (1.0-6.0); HEMATOCRIT 24.5 % (41-53); LYMPHOCYTES # (AUTO) 1.7 K/uL (1.0-4.8); LYMPHOCYTES % (AUTO) 18.5 % (22.0-44.0); MEAN CORPUSCULAR HEMOGLOBIN 32.2 pg (26.0-34.0); MEAN CORPUSCULAR HGB CONC 32.9 G/dL (31.0-37.0); MEAN CORPUSCULAR VOLUME 98 fL (80-100); MONOCYTES # (AUTO) 1.5 K/uL (0.1-1.0); MONOCYTES % (AUTO) 16.3 % (2.0-9.0); NEUTROPHILS # (AUTO) 5.7 K/uL (1.8-7.7); NEUTROPHILS % (AUTO) 62.8 % (40.0-70.0); PLATELET COUNT (AUTO) 234 K/uL (150-450); RED CELL DISTRIBUTION WIDTH 21.7 % (11.5-14.5); WHITE BLOOD COUNT (AUTO) 9.1 K/uL (4.5-11.0)
[2024-04-30 06:27] LABS: ANION GAP 4 mmol/L (8-16); CALCIUM, TOTAL 10.3 mg/dL (8.8-10.5); CARBON DIOXIDE 32 mmol/L (22-29); CHLORIDE 104 mmol/L (98-107); CREATININE 0.73 mg/dL (0.60-1.30); GLOMERULAR FILTR. RATE CALC > 60 mL/min (>60); GLUCOSE,RANDOM 89 mg/dL (70-110); PHOSPHORUS 2.8 mg/dL (2.5-4.9); POTASSIUM 3.8 mmol/L (3.5-5.1); SODIUM SERUM 140 mmol/L (136-145); UREA NITROGEN, BLOOD 12 mg/dL (7-18)
[2024-04-30] MEDS ORDERED: SODIUM BICARBONATE 50 MEQ/50 ML VIAL ONE (08:35)
[2024-04-30] MEDS ORDERED: LIDOCAINE/PF 1% 30 ML VIAL ONE (08:35)
[2024-04-30] MEDS ORDERED: IOHEXOL 300 MG/ML 50 ML VIAL ONE ×2 (08:35→10:09)
[2024-04-30] MEDS ORDERED: IOHEXOL 300 MG/ML 100 ML VIAL ONE (08:35)
[2024-04-30 08:52] LABS: RBC MORPHOLOGY COMMENT ABNORMAL RBC MORPH
[2024-04-30] MEDS ORDERED: HEPARIN SODIUM 1000 UNITS/NS 1,000 ML ONE (08:56)
[2024-04-30] MEDS ORDERED: BUMETANIDE 0.25 MG/ML 4 ML VIAL IVP SCH (09:00)
[2024-04-30] MEDS ORDERED: MIDAZOLAM HCL 2 MG/2 ML VIAL ONE (09:37)
[2024-04-30] MEDS ORDERED: FentaNYL CITRATE PF 100 MCG/2 ML VIAL ONE (09:37)
[2024-04-30] MEDS: IOHEXOL 300 MG/ML 50 ML VIAL IVP ONE (10:01)
[2024-04-30] MEDS: LIDOCAINE 1% 30 ML/SOD BICARB 8.4% 4 ML SQ ONE (10:02)
[2024-04-30] MEDS: SODIUM CHLORIDE 0.9% 500 ML IV ONE ×2 (10:03→11:39)
[2024-04-30] MEDS: FentaNYL CITRATE PF 100 MCG/2 ML VIAL IVP ONE (10:04)
[2024-04-30] MEDS: MIDAZOLAM HCL 2 MG/2 ML VIAL IVP ONE (10:05)
[2024-04-30] MEDS: HEPARIN SODIUM 1000 UNITS/NS 1,000 ML IARTER ONE (11:36)
[2024-04-30] MEDS: HEPARIN SODIUM 2,000 UNITS in HEPARIN SODIUM 1000 UNITS/NS 1,000 ML IARTER ONE (11:36)
[2024-04-30] MEDS: IOHEXOL 300 MG/ML 50 ML VIAL IARTER ONE (11:37)
[2024-04-30] MEDS ORDERED: HEPARIN SODIUM,PORCINE 1,000 UNITS/ML VIAL ONE (12:00)
[2024-04-30] MEDS: HEPARIN SODIUM,PORCINE 1,000 UNITS/ML VIAL IVP PRN ×2 (13:42→13:43)
[2024-05-01] VITALS (24 sets, daily range): BP systolic 90–135; BP diastolic 38–80; PULSE 91–100; RESP 20–26; TEMP 97.6–98.2; O2SAT 20–94
[2024-05-01 06:25] LABS: HEMATOCRIT 21.6 % (41-53); MEAN CORPUSCULAR HEMOGLOBIN 31.8 pg (26.0-34.0); MEAN CORPUSCULAR HGB CONC 32.3 G/dL (31.0-37.0); MEAN CORPUSCULAR VOLUME 98 fL (80-100); PLATELET COUNT (AUTO) 235 K/uL (150-450); RED BLOOD CELL COUNT(AUTO) 2.19 MIL/uL (4.50-5.90); RED CELL DISTRIBUTION WIDTH 21.7 % (11.5-14.5); WHITE BLOOD COUNT (AUTO) 7.4 K/uL (4.5-11.0)
[2024-05-01 06:38] LABS: ANION GAP 6 mmol/L (8-16); CALCIUM, TOTAL 11.3 mg/dL (8.8-10.5); CARBON DIOXIDE 28 mmol/L (22-29); CHLORIDE 105 mmol/L (98-107); CREATININE 0.99 mg/dL (0.60-1.30); GLOMERULAR FILTR. RATE CALC > 60 mL/min (>60); GLUCOSE,RANDOM 81 mg/dL (70-110); PHOSPHORUS 3.8 mg/dL (2.5-4.9); POTASSIUM 3.4 mmol/L (3.5-5.1); SODIUM SERUM 139 mmol/L (136-145); UREA NITROGEN, BLOOD 13 mg/dL (7-18)
[2024-05-01 08:06] LABS: BAND NEUTROPHILS % (MANUAL) 4 % (0-5); LYMPHOCYTES % (MANUAL) 27 % (22-44); MONOCYTES % (MANUAL) 12 % (2-9); SEGMENTED NEUTROPHILS % 57 % (40-70); TOTAL CELLS COUNTED 100
[2024-05-01 08:07] LABS: RBC MORPHOLOGY COMMENT ABNORMAL RBC MORPH
[2024-05-01] MEDS: MIDODRINE HCL 5 MG TABLET PO SCH (09:00)
[2024-05-01] MEDS ORDERED: SODIUM CHLORIDE 0.9% 250 ML IV ONE (12:43)
[2024-05-02] VITALS (26 sets, daily range): BP systolic 100–142; BP diastolic 53–78; PULSE 76–94; RESP 20–27; TEMP 97.5–98; O2SAT 92–100
[2024-05-02 01:08] LABS: HEMATOCRIT 28.4 % (41-53); HEMOGLOBIN 9.1 g/dL (13.5-17.5)
[2024-05-02 06:59] LABS: BASOPHILS % (AUTO) 2.7 % (0.0-2.0); EOSINOPHILS % (AUTO) 3.1 % (1.0-6.0); LYMPHOCYTES # (AUTO) 2.2 K/uL (1.0-4.8); LYMPHOCYTES % (AUTO) 29.1 % (22.0-44.0); MEAN CORPUSCULAR HEMOGLOBIN 30.9 pg (26.0-34.0); MEAN CORPUSCULAR HGB CONC 32.1 G/dL (31.0-37.0); MEAN CORPUSCULAR VOLUME 96 fL (80-100); MONOCYTES # (AUTO) 1.3 K/uL (0.1-1.0); MONOCYTES % (AUTO) 17.9 % (2.0-9.0); NEUTROPHILS # (AUTO) 3.5 K/uL (1.8-7.7); NEUTROPHILS % (AUTO) 47.2 % (40.0-70.0); PLATELET COUNT (AUTO) 283 K/uL (150-450); RED BLOOD CELL COUNT(AUTO) 2.91 MIL/uL (4.50-5.90); RED CELL DISTRIBUTION WIDTH 23.1 % (11.5-14.5); WHITE BLOOD COUNT (AUTO) 7.5 K/uL (4.5-11.0)
[2024-05-02 07:05] LABS: RBC MORPHOLOGY COMMENT ABNORMAL RBC MORPH
[2024-05-02 07:18] LABS: CREATININE 1.24 mg/dL (0.60-1.30); POTASSIUM 3.7 mmol/L (3.5-5.1)
[2024-05-02 07:44] LABS: CALCIUM, TOTAL 12.8 mg/dL (8.8-10.5)
[2024-05-02] MEDS: OxyCODONE HCL/ACETAMINOPHEN 5-325 MG TABLET PO PRN (09:14)
[2024-05-02] MEDS ORDERED: SODIUM CHLORIDE 0.9% 500 ML IV ONE (15:09)
[2024-05-02] MEDS ORDERED: HEPARIN SODIUM,PORCINE 1,000 UNITS/ML VIAL IVP ONE (22:46)
[2024-05-03] VITALS (19 sets, daily range): BP systolic 106–143; BP diastolic 58–87; PULSE 72–93; RESP 19–25; TEMP 96.4–98.9; O2SAT 94–99
[2024-05-03 07:54] LABS: BILIRUBIN,TOTAL 0.6 mg/dL (0.1-1.0); CREATININE 1.37 mg/dL (0.60-1.30); PHOSPHORUS 4.3 mg/dL (2.5-4.9); POTASSIUM 3.5 mmol/L (3.5-5.1); TOTAL PROTEIN, SERUM 5.6 g/dL (6.4-8.2)
[2024-05-03 08:22] LABS: CALCIUM, TOTAL 11.8 mg/dL (8.8-10.5)
[2024-05-03] MEDS: ALBUMIN HUMAN 25%-25GM/100ML 100 ML IV SCH (16:53)
[2024-05-03] MEDS: BUMETANIDE 0.25 MG/ML 4 ML VIAL IVP SCH (16:55)
[2024-05-04] VITALS (27 sets, daily range): BP systolic 91–142; BP diastolic 46–87; PULSE 74–101; RESP 18–27; TEMP 96.6–98.1; O2SAT 94–100
[2024-05-04 07:38] LABS: BASOPHILS % (AUTO) 1.2 % (0.0-2.0); EOSINOPHILS % (AUTO) 3.6 % (1.0-6.0); HEMATOCRIT 25.6 % (41-53); HEMOGLOBIN 8.2 g/dL (13.5-17.5); LYMPHOCYTES # (AUTO) 2.3 K/uL (1.0-4.8); LYMPHOCYTES % (AUTO) 29.8 % (22.0-44.0); MEAN CORPUSCULAR HEMOGLOBIN 30.8 pg (26.0-34.0); MEAN CORPUSCULAR HGB CONC 31.9 G/dL (31.0-37.0); MEAN CORPUSCULAR VOLUME 97 fL (80-100); MONOCYTES # (AUTO) 1.4 K/uL (0.1-1.0); MONOCYTES % (AUTO) 18.5 % (2.0-9.0); NEUTROPHILS # (AUTO) 3.6 K/uL (1.8-7.7); NEUTROPHILS % (AUTO) 46.9 % (40.0-70.0); PLATELET COUNT (AUTO) 224 K/uL (150-450); RED BLOOD CELL COUNT(AUTO) 2.66 MIL/uL (4.50-5.90); RED CELL DISTRIBUTION WIDTH 21.5 % (11.5-14.5); WHITE BLOOD COUNT (AUTO) 7.7 K/uL (4.5-11.0)
[2024-05-04 07:45] LABS: CREATININE 1.72 mg/dL (0.60-1.30); POTASSIUM 3.3 mmol/L (3.5-5.1)
[2024-05-04 07:47] LABS: CALCIUM, TOTAL 13.1 mg/dL (8.8-10.5)
[2024-05-04 09:06] LABS: PARATHYROID HORMONE INTACT 9 pg/mL (15-65)
[2024-05-04] MEDS: MIDODRINE HCL 5 MG TABLET PO SCH (14:57)
[2024-05-04] MEDS: HEPARIN SODIUM,PORCINE 1,000 UNITS/ML VIAL IVCATH ONE ×2 (16:33)
[2024-05-04] MEDS: ALBUMIN HUMAN 25%-12.5GM/50ML IV BOTTLE IV PRN (16:33)
[2024-05-04] MEDS ORDERED: HEPARIN SODIUM,PORCINE 1,000 UNITS/ML VIAL IVP ONE (16:50)
[2024-05-04] MEDS ORDERED: ALBUMIN HUMAN 25%-12.5GM/50ML IV BOTTLE IV ONE (16:50)
[2024-05-05] VITALS (27 sets, daily range): BP systolic 90–134; BP diastolic 42–82; PULSE 69–95; RESP 18–25; TEMP 96.5–97.8; O2SAT 94–100
[2024-05-05] MEDS ORDERED: SODIUM CHLORIDE 0.9% 500 ML IV ONE (05:34)
[2024-05-06] VITALS (36 sets, daily range): BP systolic 70–133; BP diastolic 35–90; PULSE 68–97; RESP 20–35; TEMP 97.3–98.1; O2SAT 89–97
[2024-05-06] MEDS ORDERED: SODIUM CL IRRIG SOLN BOTTLE 250 ML IRRIG ONE (03:17)
[2024-05-06 07:08] LABS: BASOPHILS % (AUTO) 0.4 % (0.0-2.0); EOSINOPHILS % (AUTO) 1.4 % (1.0-6.0); HEMOGLOBIN 8.7 g/dL (13.5-17.5); LYMPHOCYTES # (AUTO) 2.2 K/uL (1.0-4.8); MEAN CORPUSCULAR HEMOGLOBIN 30.8 pg (26.0-34.0); MEAN CORPUSCULAR HGB CONC 31.2 G/dL (31.0-37.0); MEAN CORPUSCULAR VOLUME 99 fL (80-100); MONOCYTES # (AUTO) 2.1 K/uL (0.1-1.0); MONOCYTES % (AUTO) 11.7 % (2.0-9.0); NEUTROPHILS # (AUTO) 13.6 K/uL (1.8-7.7); NEUTROPHILS % (AUTO) 74.5 % (40.0-70.0); PLATELET COUNT (AUTO) 178 K/uL (150-450); RED BLOOD CELL COUNT(AUTO) 2.84 MIL/uL (4.50-5.90); RED CELL DISTRIBUTION WIDTH 22.2 % (11.5-14.5); WHITE BLOOD COUNT (AUTO) 18.2 K/uL (4.5-11.0)
[2024-05-06 07:19] LABS: CREATININE 1.38 mg/dL (0.60-1.30); POTASSIUM 3.4 mmol/L (3.5-5.1)
[2024-05-06 07:22] LABS: CALCIUM, TOTAL 12.5 mg/dL (8.8-10.5)
[2024-05-06 07:29] LABS: INR 1.1 (0.9-1.1); PROTHROMBIN TIME 11.9 SEC (9.4-11.6)
[2024-05-06] MEDS ORDERED: SODIUM BICARBONATE 50 MEQ/50 ML VIAL ONE (07:31)
[2024-05-06] MEDS ORDERED: LIDOCAINE/PF 1% 30 ML VIAL ONE (07:31)
[2024-05-06 08:27] LABS: RBC MORPHOLOGY COMMENT ABNORMAL RBC MORPH
[2024-05-06] MEDS ORDERED: SODIUM CHLORIDE 0.9% 1,000 ML ONE (09:30)
[2024-05-06] MEDS: *NON-FORMULARY MED [ENTER DRUG, DOSE, FREQ IN COMMENTS] CLINICAL ONE (10:08)
[2024-05-06] MEDS ORDERED: HEPARIN SODIUM,PORCINE 1,000 UNITS/ML VIAL ONE (12:00)
[2024-05-06] MEDS: ALBUMIN HUMAN 25%-25GM/100ML 100 ML IV ONE (12:50)
[2024-05-06] MEDS: MIDODRINE HCL 5 MG TABLET PO ONE (14:45)
[2024-05-06] MEDS: ALBUMIN HUMAN 25%-25GM/100ML 100 ML IV PRN (14:47)
[2024-05-06] MEDS: VANCOMYCIN HCL 125 MG/2.5 ML SOLUTION ORAL.SYG PO SCH (17:11)
[2024-05-06 22:34] LABS: C.DIFF GDH ANTIGEN, Stool Negative (Negative); C.DIFF TOXINS A&B, Stool Negative (Negative)
[2024-05-07] VITALS (25 sets, daily range): BP systolic 98–131; BP diastolic 54–102; PULSE 76–100; RESP 18–33; TEMP 97–98.6; O2SAT 90–96
[2024-05-07 06:44] LABS: HEMATOCRIT 27.4 % (41-53); HEMOGLOBIN 8.6 g/dL (13.5-17.5); MEAN CORPUSCULAR HEMOGLOBIN 30.4 pg (26.0-34.0); MEAN CORPUSCULAR HGB CONC 31.5 G/dL (31.0-37.0); MEAN CORPUSCULAR VOLUME 97 fL (80-100); PLATELET COUNT (AUTO) 175 K/uL (150-450); RED BLOOD CELL COUNT(AUTO) 2.84 MIL/uL (4.50-5.90); RED CELL DISTRIBUTION WIDTH 22.5 % (11.5-14.5); WHITE BLOOD COUNT (AUTO) 12.3 K/uL (4.5-11.0)
[2024-05-07 07:47] LABS: BAND NEUTROPHILS % (MANUAL) 5 % (0-5); LYMPHOCYTES % (MANUAL) 28 % (22-44); MONOCYTES % (MANUAL) 4 % (2-9); RBC MORPHOLOGY COMMENT ABNORMAL RBC MORPH; SEGMENTED NEUTROPHILS % 63 % (40-70); TOTAL CELLS COUNTED 100
[2024-05-07 10:13] LABS: CREATININE 1.38 mg/dL (0.60-1.30); POTASSIUM 3.2 mmol/L (3.5-5.1)
[2024-05-07] MEDS: DENOSUMAB 60 MG/ML SYRINGE SQ ONE (10:28)
[2024-05-07 10:45] LABS: CALCIUM, TOTAL 11.8 mg/dL (8.8-10.5)
[2024-05-07] MEDS ORDERED: ALBUMIN HUMAN 25%-12.5GM/50ML IV BOTTLE IV ONE (12:00)
[2024-05-07] MEDS ORDERED: HEPARIN SODIUM,PORCINE 1,000 UNITS/ML VIAL IVP ONE (12:00)
[2024-05-07] MEDS ORDERED: ALBUMIN HUMAN 25%-25GM/100ML 100 ML IV PRN (17:45)
[2024-05-08] VITALS (29 sets, daily range): BP systolic 80–123; BP diastolic 36–70; PULSE 71–97; RESP 18–26; TEMP 96–98.9; O2SAT 89–100
[2024-05-08] MEDS ORDERED: HEPARIN SODIUM 1000 UNITS/NS 500 ML ONE (07:27)
[2024-05-08] MEDS ORDERED: SODIUM BICARBONATE 50 MEQ/50 ML VIAL ONE (07:27)
[2024-05-08] MEDS ORDERED: LIDOCAINE/PF 1% 30 ML VIAL ONE (07:27)
[2024-05-08 07:40] LABS: BASOPHILS % (AUTO) 0.6 % (0.0-2.0); EOSINOPHILS % (AUTO) 2.6 % (1.0-6.0); HEMOGLOBIN 8.4 g/dL (13.5-17.5); LYMPHOCYTES # (AUTO) 2.9 K/uL (1.0-4.8); LYMPHOCYTES % (AUTO) 24.5 % (22.0-44.0); MEAN CORPUSCULAR HEMOGLOBIN 30.6 pg (26.0-34.0); MEAN CORPUSCULAR HGB CONC 32.3 G/dL (31.0-37.0); MEAN CORPUSCULAR VOLUME 95 fL (80-100); MONOCYTES # (AUTO) 1.8 K/uL (0.1-1.0); MONOCYTES % (AUTO) 14.9 % (2.0-9.0); NEUTROPHILS # (AUTO) 6.8 K/uL (1.8-7.7); NEUTROPHILS % (AUTO) 57.4 % (40.0-70.0); PLATELET COUNT (AUTO) 165 K/uL (150-450); RED BLOOD CELL COUNT(AUTO) 2.74 MIL/uL (4.50-5.90); RED CELL DISTRIBUTION WIDTH 21.7 % (11.5-14.5); WHITE BLOOD COUNT (AUTO) 11.9 K/uL (4.5-11.0)
[2024-05-08 07:56] LABS: GLUCOMETER DEV NAME(LOC) 5N.2C; GLUCOSE,POINT OF CARE 123 MG/DL (70-110)
[2024-05-08] MEDS ORDERED: MIDAZOLAM HCL 2 MG/2 ML VIAL ONE (08:46)
[2024-05-08] MEDS ORDERED: FentaNYL CITRATE PF 100 MCG/2 ML VIAL ONE (08:46)
[2024-05-08] MEDS: MIDAZOLAM HCL 2 MG/2 ML VIAL IVP ONE (09:05)
[2024-05-08] MEDS: FentaNYL CITRATE PF 100 MCG/2 ML VIAL IVP ONE (09:11)
[2024-05-08] MEDS: LIDOCAINE 1% 30 ML/SOD BICARB 8.4% 4 ML SQ ONE (09:12)
[2024-05-08] MEDS: HEPARIN SODIUM,PORCINE 1,000 UNITS/ML 10 ML VIAL IVP ONE (09:39)
[2024-05-08 13:49] LABS: APPEARANCE,URINE TURBID (CLEAR); BILIRUBIN,URINE NEGATIVE (NEGATIVE); COLOR,URINE YELLOW (YELLOW); GLUCOSE, URINE (UA) NEGATIVE (NEGATIVE); KETONES,URINE NEGATIVE (NEGATIVE); LEUKOCYTE ESTERASE ,URINE LARGE (NEGATIVE); NITRATE,URINE NEGATIVE (NEGATIVE); OCCULT BLOOD,URINE LARGE (NEGATIVE); PH,URINE 7.5 (5.0-8.0); PROTEIN,URINE 300-600,SEE CONFIRM mg/dL (NEGATIVE); SPECIFIC GRAVITIY, URINE 1.018 (1.003-1.030); UROBILINOGEN,URINE <=1.0 mg/dL (<=1.0)
[2024-05-08 13:52] LABS: SULFOSALICYLIC ACID,URINE 3+ (Negative)
[2024-05-08 13:53] LABS: BACTERIA,URINE Many /HPF (None Seen); WBC,URINE 51-100 /HPF (0-5)
[2024-05-08 13:54] LABS: YEAST,URINE Many /HPF (None Seen)
[2024-05-08] MEDS ORDERED: SODIUM CHLORIDE 0.9% 2,000 ML ONE (14:25)
[2024-05-09] VITALS (14 sets, daily range): BP systolic 97–129; BP diastolic 58–73; PULSE 73–86; RESP 18–26; TEMP 96.4–96.7; O2SAT 94–99
[2024-05-09 06:47] LABS: CALCIUM, TOTAL 10.9 mg/dL (8.8-10.5); CREATININE 1.66 mg/dL (0.60-1.30); PHOSPHORUS 2.6 mg/dL (2.5-4.9); POTASSIUM 3.9 mmol/L (3.5-5.1)
[2024-05-09] MEDS ORDERED: HEPARIN SODIUM,PORCINE 1,000 UNITS/ML VIAL IVP ONE (17:31)
[2024-05-09] MEDS ORDERED: ALBUMIN HUMAN 25%-12.5GM/50ML IV BOTTLE IV ONE (17:31)
[2024-05-10 11:09] LABS: FREE KAPPA LIGHT CHAINS,S 149.1 mg/L (3.3-19.4); FREE KAPPA/LAMBDA LT CHN RATIO 1.69 (0.26-1.65)
== END 2024-05-09 19:15 | DRG 4 ==
LOC: EMS 18:43 → EDH 23:53 → ICU 03-25 13:00 → 5N 04-01 19:30 → ICU 04-12 07:15 → 5S 05-02 00:21
PROVIDERS: ADMIT Internal Medicine; ATTEND Internal Medicine
PROC: 5A1955Z Respiratory Ventilation, Greater than 96 Consecutive Hours (ICD-10-PCS; 2024-03-24)
PROC: 05HA33Z Insertion of Infusion Device into Left Brachial Vein, Percutaneous Approach (ICD-10-PCS; 2024-03-26)
PROC: 05HB33Z Insertion of Infusion Device into Right Basilic Vein, Percutaneous Approach (ICD-10-PCS; 2024-03-26)
PROC: B54MZZA Ultrasonography of Right Upper Extremity Veins, Guidance (ICD-10-PCS; 2024-03-26)
PROC: B54NZZA Ultrasonography of Left Upper Extremity Veins, Guidance (ICD-10-PCS; 2024-03-26)
PROC: 30233N1 Transfusion of Nonautologous Red Blood Cells into Peripheral Vein, Percutaneous Approach (ICD-10-PCS; 2024-03-28)
PROC: 0DB78ZX Excision of Stomach, Pylorus, Via Natural or Artificial Opening Endoscopic, Diagnostic (ICD-10-PCS; 2024-03-28)
PROC: 5A1D70Z Performance of Urinary Filtration, Intermittent, Less than 6 Hours Per Day (ICD-10-PCS; 2024-04-16)
PROC: 5A1D70Z Performance of Urinary Filtration, Intermittent, Less than 6 Hours Per Day (ICD-10-PCS; 2024-04-19)
PROC: 5A1D70Z Performance of Urinary Filtration, Intermittent, Less than 6 Hours Per Day (ICD-10-PCS; 2024-04-22)
PROC: 5A1D70Z Performance of Urinary Filtration, Intermittent, Less than 6 Hours Per Day (ICD-10-PCS; 2024-04-23)
PROC: 5A1D70Z Performance of Urinary Filtration, Intermittent, Less than 6 Hours Per Day (ICD-10-PCS; 2024-04-24)
PROC: 0DH63UZ Insertion of Feeding Device into Stomach, Percutaneous Approach (ICD-10-PCS; 2024-04-24)
PROC: 5A1D70Z Performance of Urinary Filtration, Intermittent, Less than 6 Hours Per Day (ICD-10-PCS; 2024-04-26)
PROC: 5A1D70Z Performance of Urinary Filtration, Intermittent, Less than 6 Hours Per Day (ICD-10-PCS; 2024-04-28)
PROC: 0B113F4 Bypass Trachea to Cutaneous with Tracheostomy Device, Percutaneous Approach (ICD-10-PCS; principal; 2024-04-29)
PROC: 5A1D70Z Performance of Urinary Filtration, Intermittent, Less than 6 Hours Per Day (ICD-10-PCS; 2024-04-30)
PROC: 06H03DZ Insertion of Intraluminal Device into Inferior Vena Cava, Percutaneous Approach (ICD-10-PCS; 2024-04-30)
PROC: 5A1D70Z Performance of Urinary Filtration, Intermittent, Less than 6 Hours Per Day (ICD-10-PCS; 2024-05-02)
PROC: 5A1D70Z Performance of Urinary Filtration, Intermittent, Less than 6 Hours Per Day (ICD-10-PCS; 2024-05-04)
PROC: 5A1D70Z Performance of Urinary Filtration, Intermittent, Less than 6 Hours Per Day (ICD-10-PCS; 2024-05-05)
PROC: 5A1D70Z Performance of Urinary Filtration, Intermittent, Less than 6 Hours Per Day (ICD-10-PCS; 2024-05-06)
PROC: 0JH63XZ Insertion of Tunneled Vascular Access Device into Chest Subcutaneous Tissue and Fascia, Percutaneous Approach (ICD-10-PCS; 2024-05-08)
PROC: 02HV33Z Insertion of Infusion Device into Superior Vena Cava, Percutaneous Approach (ICD-10-PCS; 2024-05-08)
PROC: B548ZZA Ultrasonography of Superior Vena Cava, Guidance (ICD-10-PCS; 2024-05-08)
PROC: 5A1D70Z Performance of Urinary Filtration, Intermittent, Less than 6 Hours Per Day (ICD-10-PCS; 2024-05-08)
DX: A41.9 Sepsis, unspecified organism (principal); E43 Unspecified severe protein-calorie malnutrition; J69.0 Pneumonitis due to inhalation of food and vomit; K29.71 Gastritis, unspecified, with bleeding; K25.4 Chronic or unspecified gastric ulcer with hemorrhage; R65.21 Severe sepsis with septic shock; J96.01 Acute respiratory failure with hypoxia; E40 Kwashiorkor; G92.8 Other toxic encephalopathy; N18.6 End stage renal disease; E87.0 Hyperosmolality and hypernatremia; A04.72 Enterocolitis due to Clostridium difficile, not specified as recurrent; E87.20 Acidosis, unspecified; J98.11 Atelectasis; K31.1 Adult hypertrophic pyloric stenosis; I96 Gangrene, not elsewhere classified; I82.593 Chronic embolism and thrombosis of other specified deep vein of lower extremity, bilateral; I82.531 Chronic embolism and thrombosis of right popliteal vein; I82.512 Chronic embolism and thrombosis of left femoral vein; D62 Acute posthemorrhagic anemia; J44.1 Chronic obstructive pulmonary disease with (acute) exacerbation; K80.10 Calculus of gallbladder with chronic cholecystitis without obstruction; L02.212 Cutaneous abscess of back [any part, except buttock and flank]; Z99.11 Dependence on respirator [ventilator] status; I13.2 Hypertensive heart and chronic kidney disease with heart failure and with stage 5 chronic kidney disease, or end stage renal disease; N17.9 Acute kidney failure, unspecified; L03.317 Cellulitis of buttock; D63.8 Anemia in other chronic diseases classified elsewhere; E83.42 Hypomagnesemia; E87.6 Hypokalemia; K76.0 Fatty (change of) liver, not elsewhere classified; D63.1 Anemia in chronic kidney disease; E88.09 Other disorders of plasma-protein metabolism, not elsewhere classified; F10.20 Alcohol dependence, uncomplicated; F31.9 Bipolar disorder, unspecified; F40.240 Claustrophobia; E83.52 Hypercalcemia; F43.10 Post-traumatic stress disorder, unspecified; D69.6 Thrombocytopenia, unspecified; K40.20 Bilateral inguinal hernia, without obstruction or gangrene, not specified as recurrent; K44.9 Diaphragmatic hernia without obstruction or gangrene; K57.30 Diverticulosis of large intestine without perforation or abscess without bleeding; F17.210 Nicotine dependence, cigarettes, uncomplicated; E86.0 Dehydration; Z68.34 Body mass index [BMI] 34.0-34.9, adult; Z53.20 Procedure and treatment not carried out because of patient's decision for unspecified reasons; Y90.9 Presence of alcohol in blood, level not specified; K70.31 Alcoholic cirrhosis of liver with ascites; T38.0X5A Adverse effect of glucocorticoids and synthetic analogues, initial encounter; K42.9 Umbilical hernia without obstruction or gangrene; B37.9 Candidiasis, unspecified; I50.9 Heart failure, unspecified; Z66 Do not resuscitate; Z88.8 Allergy status to other drugs, medicaments and biological substances; Z63.4 Disappearance and death of family member; Z91.51 Personal history of suicidal behavior; Y92.89 Other specified places as the place of occurrence of the external cause; Z99.2 Dependence on renal dialysis; Z79.899 Other long term (current) drug therapy
CPT/HCPCS: 31624; 36005; 36245; 36561; 36569; 36600; 37619; 70450; 71045; 71250; 71275; 72128; 72131; 72192; 74018; 74022; 74150; 74177; 76000; 76705; 76770; 76937; 78226; 80048; 80053; 80202; 80307; 81001; 81002; 82140; 82150; 82271; 82550; 82570; 82805; 82962; 83605; 83615; 83690; 83735; 83880; 83883; 83970; 84100; 84132; 84145; 84300; 84443; 84484; 84540; 85014; 85018; 85025; 85610; 85730; 86850; 86900; 86901; 86923; 87015; 87040; 87070; 87077; 87081; 87086; 87101; 87186; 87205; 87206; 87220; 87252; 87324; 87338; 87340; 87449; 87481; 87804; 88305; 88312; 88313; 90935; 92526; 92610; 93005; 93306; 93970; 94002; 94003; 94640; 97110; 97163; 97530; 97535; 99285; A9537; C9113; G0378; G0480; J0610; J0637; J0690; J0696; J0878; J0885; J1265; J1644; J1885; J1940; J1956; J2185; J2250; J2370; J2543; J2704; J3010; J3411; J3475; J3480; J3490; J7030; J7040; J7050; J7060; J7070; J7120; J7131; P9016; P9041; P9046; P9047; Q9967; 36415-L1; 36415-TC; J7613; X7700